=== PATIENT | female | born 1995 | race Caucasian/White ===

== ENCOUNTER 2016-06-29 17:11 | Inpatient (IN) | payer OTHER ==
[~2016-06-29] VITALS: Ht 175.3 cm; Wt 69.9 kg
[~2016-06-29 17:11] MED LIST: IBUPROFEN800 MG PO; IRON325 M1 PO; LEVAQUIN750 MG PO; MOTRIN800 MG PO; MULTIVITAMIN1 TA1 PO; PRENATAL1 TA2 PO; TRAMADOL50 MG PO
--- NOTE | 2016-06-29 17:14 | NUR ---
TRIAGE; PT TO ED C/O PAIN WHEN BREATHING. STATES SHE HAS A HX OF ASTHMA. HAS BEEN USING INHALER Q1 HOUR FOR THE PAST FEW DAYS. STATES PAIN HAS BEEN GETTING WORSE.
[2016-06-29] MEDS ORDERED: PROAIR HFA8.5 GM INH (17:19)
[2016-06-29] MEDS ORDERED: IPRATROPIUM BRO15 M1 NASB (17:20)
--- NOTE | 2016-06-29 17:20 | NUR ---
PT RECIEVED TO ROOM 7. AMBULATED TO ROOM. PT COMPLAINING OF DIFFICULTY BREATHING DUE TO PAIN WITH INSPIRATION. SHALLOW RAPID RESPIRATIONS. SATS 98% ON ROOM AIR. HEART RATE 153 PER PULSE OX. STEPHANIE ÁLVAREZ IN TO SEE PT.
[2016-06-29] MEDS ORDERED: IBUPROFEN800 M1 PO (17:23)
--- NOTE | 2016-06-29 17:26 | ED DYSPNEA/ASTHMA COMPLAINT ---
History of Present Illness General Chief Complaint: Dyspnea (COPD, CHF, Other) Stated Complaint: "IM HAVING A LOT OF PAIN BREATHING" Source: patient Exam Limitations: clinical condition Vital Signs & Intake/Output Vital Signs & Intake/Output Vital Signs Date Time Temp Pulse Resp B/P Pulse O2 O2 Flow FiO2 Ox Delivery Rate 06/29 1828 99.6 117 18 102/54 97 Room Air 06/29 1810 Room Air 06/29 1744 100.9 06/29 1713 100.9 153 20 116/78 94 Room Air Allergies Coded Allergies: No Known Allergies (06/29/16) Reconcile Medications Albuterol Sulfate (Proair Hfa) 90 MCG HFA.AER.AD 2 PUF INH Q4-6 PRN PRN RESPIRATORY (Reported) Ibuprofen 800 MG TABLET 1 TAB PO BID PAIN/INFLAMMATION (Reported) Ipratropium [place] 42 MCG (0.06 %) SPRAY 1-2 SPRAY NASB AD PRN NASAL CONGESTION (Reported) Triage Note: TRIAGE; PT TO ED C/O PAIN WHEN BREATHING. STATES SHE HAS A HX OF ASTHMA. HAS BEEN USING INHALER Q1 HOUR FOR THE PAST FEW DAYS. STATES PAIN HAS BEEN GETTING WORSE. Triage Nurses Notes Reviewed? yes Onset: Gradual Duration: week(s): (2), constant, getting worse Timing: recent history Severity: moderate, severe HPI: 20-year-old female comes into emergency room feeling sick for the past 2 weeks. Patient reports it started with sore throat and upper respiratory symptoms. Patient reports that she's been developing fever cough with mucus production severe body aches and fatigue. Progress with associated chest pain or shortness of breath over the past 2 days and symptoms of gotten progressively worse. Past History Travel History Traveled to [place] past 21 day No Medical History Any Pertinent Medical History? see below for history EENT: NONE (tonsillectomy) Cardiovascular: NONE ( induced cardiomyopat) Surgical History Surgical History: non-contributory Psychosocial History What is your primary language Kinyarwanda Family History Hx Contributory? No Review of Systems Review of Systems Constitutional: Reports: see HPI. EENTM: Reports: see HPI. Respiratory: Reports: see HPI. Cardiovascular: Reports: no symptoms. GI: Reports: no symptoms. Genitourinary: Reports: no symptoms. Musculoskeletal: Reports: no symptoms. Skin: Reports: no symptoms. Neurological/Psychological: Reports: no symptoms. Hematologic/Endocrine: Reports: no symptoms. Immunologic/Allergic: Reports: no symptoms. All Other Systems: Reviewed and Negative Physical Exam Physical Exam General Appearance: well developed/nourished, alert, awake, moderate distress Head: atraumatic, normal appearance Eyes: Bilateral: normal appearance, EOMI. Ears, Nose, Throat: normal pharynx, normal ENT inspection Neck: normal inspection Respiratory: normal breath sounds, no respiratory distress Cardiovascular: regular rate/rhythm, tachycardia Gastrointestinal: soft Extremities: normal inspection Neurologic/Psych: awake, alert, oriented x 3, normal gait, normal mood/affect Skin: intact, diaphoresis Core Measures ACS in differential dx? Yes Severe Sepsis Present: Yes BC x2: Yes Lactic Acid x2: Yes IV ABX Broad Spectrum: Yes NS/LR Started: Yes Septic Shock Present: No Progress Differential Diagnosis: asthma, AMI, bronchitis, costochondritis, CHF, COPD, musculoskeletal pain, pericarditis, pulmonary embolism, pneumonia, pneumothorax, rib fracture, unstable angina Plan of Care: Orders Procedure Date/time Status LACTIC ACID 06/30 2023 Active Telemetry/Shake Maker 06/29 172 Active URINE 06/29 172 Complete RAPID VIRAL INFLUENZA A 06/30 1723 Complete BLOOD CULTURE 06/29 172 Active TROPONIN LEVEL 06/29 172 Complete LACTIC ACID 06/29 172 Complete COMPREHENSIVE METABOLIC PANEL 06/29 172 Complete CBC WITHOUT DIFFERENTIAL 06/30 1723 Complete EKG 06/29 172 Active Current Medications Sig/Mel Start time Last Medication Dose Stop Time Status Admin Azithromycin 500 MG ONCE ONE 06/29 1844 AC (Zithromax) 06/30 1943 Sodium Chloride 250 ML (Normal Saline 0.9%) Sodium Chloride 1,000 ML BOLUS ONE 06/29 1844 AC (Normal Saline 0.9%) 06/30 1943 Laboratory Tests 06/29/16 1730: Anion Gap 16, Estimated GFR > 60, BUN/Creatinine Ratio 8.6, Glucose 145 H, Lactic Acid 3.3 H, Calcium 9.8, Total Bilirubin 1.2, AST 44 H, ALT 48, Alkaline Phosphatase 113, Troponin I < 0.01, Total Protein 8.0, Albumin 4.6, Globulin 3.4, Albumin/Globulin Ratio 1.4, CBC w Diff NO MAN DIFF REQ, RBC 4.27, MCV 82.8, MCH 26.4 L, RDW 15.1 H, MPV 9.6, Gran % 88.7 H, Lymphocytes % 6.4 L, Monocytes % 4.7, Eosinophils % 0.1, Basophils % 0.1, Absolute Granulocytes 12.4 H, Absolute Lymphocytes 0.9 L, Absolute Monocytes 0.7 H, Absolute Eosinophils 0, Absolute Basophils 0, PUBS MCHC 31.9 L, Urine Test NEGATIVE Microbiology 06/29 1850 BLOOD: Blood Culture - RECD 06/29 1746 NASOPHARYN: Influenza Virus A & B Rapid Smear - COMP 06/29 1730 BLOOD: Blood Culture - RECD Diagnostic Imaging: Viewed by Me: Radiology Read. Discussed w/RAD: Radiology Read. Initial ED EKG: normal intervals, normal p-waves, normal sinus rhythm, rate (133 ), nonspecific ST T wave chg Comments: EXAM TYPE: RAD - XRY-CHEST XRAY, PA AND LATERAL EXAMINATION: XR CHEST CLINICAL INFORMATION: Cough. Shortness of breath. COMPARISON: 09/09/2013 TECHNIQUE: 2 views of the chest were obtained. FINDINGS: There is a patchy infiltrate retrocardiac location left lower lobe. No parapneumonic effusion. Right lung clear. No other abnormality. Heart and mediastinum normal. No osseous abnormality. IMPRESSION: Left lower lobe pneumonia. No parapneumonic effusion. DICTATED BY: CHRISTEN CHAVEZ MD DATE/TIME DICTATED:06/29/161820 VENEREAL DISEASE CONTROL HEAD:ANTONIO Amor Departure Disposition: STILL A PATIENT Condition: Stable Clinical Impression Primary Impression: Sepsis Secondary Impressions: Pneumonia Referrals: PATIENT HAS NO PRIMARY CARE DR Departure Forms: Customer Survey General Discharge Information Admission Note Spoke With: LOIDA ROSENTHAL MD Documentation of Exam: Documentation of any treatments & extenuating circumstances including Concerns Regarding Discharge (functional status, medication knowledge or non-compliance, living conditions, etc.) that warrant an admission rather than observation: Patient meets criteria for sepsis. Patient will require IV hydration. IV antibiotics. Repeat lab work. I risk. Patient has not patient. Critical Care Note Critical Care Note Critical Care Time: 30-74 min (40) Critical Care Note Critical Care Note Critical Care Time: 30-74 min (40)
--- NOTE | 2016-06-29 17:40 | NUR ---
PT UP TO BATHROOM AND BACK TO PROVIDE URINE SPECIMEN. IV STARTED. LABS DRAWN. FIRST SET OF BLOOD CULTURES DRAWN.
[2016-06-29 17:49] LABS: ABSOLUTE BASOPHIL COUNT 0 /CUMM (0.0-0.2); ABSOLUTE EOSINOPHIL COUNT 0 /CUMM (0.0-0.7); ABSOLUTE GRANULOCYTE CT 12.4 /CUMM (1.4-6.5); ABSOLUTE LYMPH COUNT 0.9 /CUMM (1.2-3.4); ABSOLUTE MONOCYTE COUNT 0.7 /CUMM (0.10-0.60); BASOPHIL % 0.1 % (0.0-2.0); EOSINOPHIL % 0.1 % (0-5); GRANULOCYTE % 88.7 % (42.2-75.2); HEMATOCRIT 35.4 % (37-47); MEAN CORPUSCULAR HGB 26.4 PG (27.0-31.0); MEAN CORPUSCULAR HGB CONC 31.9 G/DL (33.0-37.0); MEAN CORPUSCULAR VOLUME 82.8 FL (81.0-99.0); MEAN PLATELET VOLUME 9.6 FL (7.4-10.4); PLATELET COUNT 260 /CUMM (130-400); RBC DISTRIBUTION WIDTH 15.1 % (11.5-14.5); RED BLOOD CELL CT 4.27 /CUMM (4.20-5.40)
--- NOTE | 2016-06-29 18:01 | NUR ---
PT GETTING IVF BOLUS, IV TYLENOL GIVEN. PT ON MONITOR AND HEART RATE IS 121. NEB TX GIVEN
--- NOTE | 2016-06-29 18:01 | NUR ---
PT WITH YOUNG CHILD IN HER CUSTODY. PT PHONED SOMEONE WHO IS REPORTEDLY COMING IN TO HOSPITAL TO CARE FOR HER CHILD WHILE SHE IS A PATIENT IN ED
--- NOTE | 2016-06-29 18:08 | NUR ---
FLU SWAB OBTAINED AND SENT TO LAB. PT TAKEN TO XRAY
--- NOTE | 2016-06-29 18:25 | RADIOLOGY REPORT ---
EXAMINATION: XR CHEST CLINICAL INFORMATION: Cough. Shortness of breath. COMPARISON: 09/09/2013 TECHNIQUE: 2 views of the chest were obtained. FINDINGS: There is a patchy infiltrate retrocardiac location left lower lobe. No parapneumonic effusion. Right lung clear. No other abnormality. Heart and mediastinum normal. No osseous abnormality. IMPRESSION: Left lower lobe pneumonia. No parapneumonic effusion.
--- NOTE | 2016-06-29 18:50 | NUR ---
CRITICAL TEST RESULTS [id number] JOANIE KEYES 20 F TESTS AND RESULTS: LACTIC ACID 3.3 Results received and read back by: ANDRES ONRMAN Results received date and time: 06/29/16 1850 The following provider was notified of the results, and read the results back: STEPHANIE FINLEY Notified date and time: 06/29/16 at 1840
--- NOTE | 2016-06-29 18:50 | NUR ---
2ND SET OF BLOOD CX'S OBTAINED WITH 21GA VAC AND SENT TO LAB
--- NOTE | 2016-06-29 18:50 | NUR ---
PT SEEN BY STEPHANIE FINLEY AND INFORMED SHE IS BEING ADMITTED FOR PNEUMONIA.
--- NOTE | 2016-06-29 18:57 | NUR ---
SECOND SET OF BLOOD CULTURES DRAWN. PT FEELING BETTER THEN UPON ADMISSTION. IS SMILING AND RELAXING. HEART RATE DOWN TO 118
--- NOTE | 2016-06-29 20:56 | NUR ---
HOUSE STAFF IN TO SEE PT
--- NOTE | 2016-06-29 21:27 | Admission Certification ---
Admission Certification Certification Statement - As attending physician, I certify that at the time of - admission, based on clinical presentation, severity of - symptoms, need for further diagnostic testing and - therapeutic interventions, and risk of adverse outcomes - without in-hospital treatment, in my clinical assessment, - this patient requires an acute hospital stay for a minimum - of two nights or longer. I have also considered psychsocial - factors such as support system, advanced age, financial - issues, cognitive issues, and failed out-patient treatments, - past re-admission history, safety of patient, and lack of - compliance as applicable. Specific rationale supporting this admission is: Sepsis 2/2 left lower lobe pneumonia.
--- NOTE | 2016-06-29 21:31 | NUR ---
REPEAT LACTIC ACID SENT TO LAB. IVF STARTED AT 125/HR. REPORT CALLED TO LOGAN ON
--- NOTE | 2016-06-29 21:43 | NUR ---
PT UP TO RESTROOM TO VOID
--- NOTE | 2016-06-29 21:54 | NUR ---
URINE SPECIMEN SENT TO LAB. PT MEDICATED WITH ROBITUSSIN AC FOR PAIN WITH COUGH
[2016-06-29 22:20] VITALS: BP 110/70
--- NOTE | 2016-06-29 22:38 | History & Physical ---
BAKARI [facility]ALAVIZ[facility] 2237: General Information and HPI MD Statement: I have seen and personally examined JOANIE KEYES and documented this H&P. The patient is a 20 year old F who presented with a patient stated chief complaint of [shortness of breath]. Source of Information: patient, family, old records Exam Limitations: no limitations History of Present Illness: This is a 20-year-old female past medical history significant for cardiomyopathy follows up with Dr. Fung, last EF in 2015 at 70, has history of asthma, and thyroid cyst, who presents with chief complaint of chest pain worsened with breathing and shortness of breath. Patient states that she had cough, fever, congestion, and sore throat that started about 2 weeks ago. She went to walk-in clinic about a week ago and was found to be strep negative, not given antibiotics. Over the past 2 weeks she said that she has been febrile off and on with a MAXIMUM TEMPERATURE 103. Her cough was initially with green sputum and eventually became clear and is now a dry cough. Patient does endorse chills, malaise, headache, shortness of breath that worsens with exertion, but denies any nausea, vomiting, diarrhea, constipation, myalgias or arthralgias. She does endorse some intermittent difficulty swallowing secondary to throat pain. 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 She states that she was taking Motrin for fever, and albuterol inhaler when necessary. Initially, she was using inhaler every 12 hours then every 6, but the last 2 days she been using it every 3-1.5 hours, with no benefit. Social history significant for a glass of wine a day, with some additional beers on the weekend. She smokes 1-2 cigarettes a year. Denies any IV drug use. Patient has history of tonsillectomy and adenoid removal. Note that this is third episode of pneumonia for this patient the last 365 days. Last episode towards the end of March and beginning of April, patient finished unknown course of antibiotic. 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 Ambulation: independent IADLs Independent: shopping, housework, finances, food prep, telephone, transportation , medication admin. Review of Systems Review of Systems Constitutional: Reports: chills, fever, malaise, weakness. Denies: diaphoresis. EENTM: Reports: throat pain. Denies: blurred vision, nasal pain. Cardiovascular: Reports: chest pain. Respiratory: Reports: cough, short of breath, sputum production, wheezing. Denies: hemoptysis, orthopnea. GI: Reports: no symptoms. Genitourinary: Reports: no symptoms. Musculoskeletal: Denies: muscle pain, muscle stiffness. Skin: Reports: no symptoms. Exam & Diagnostic Data Last 24 Hrs of Vital Signs/I&O Vital Signs Date Time Temp Pulse Resp B/P Pulse O2 O2 Flow FiO2 Ox Delivery Rate 06/30 2219 99 Room Air 06/30 2219 98.6 100 20 110/70 98 Room Air 06/294 99.1 113 18 109/54 100 Room Air 06/29 2021 98.0 114 18 122/58 100 Room Air 06/29 1829 99.6 117 18 102/54 97 Room Air 06/29 1810 Room Air 06/29 1744 100.9 06/29 1713 100.9 153 20 116/78 94 Room Air Physical Exam General Appearance Alert, Oriented X3, Cooperative, No Acute Distress Skin No Significant Lesion HEENT Atraumatic, PERRLA, EOMI, Mucous Membr. moist/pink, no oropharyngeal erythema appreciated. Neck Supple, No LAD Cardiovascular Normal S1, Normal S2, tachycardic Lungs patient had decreased breath sounds in the left side. She had slight egophony in the left lower base. No wheezes, rhonchi or crackles appreciated Abdomen Soft, No Tenderness Neurological Normal Speech, Cranial Nerves 3-12 NL Extremities No Edema, Normal Pulses, No Tenderness/Swelling Last 24 Hrs of Labs/Magnus: Laboratory Tests 06/29/16 2020: Lactic Acid 1.3 06/29/160: Anion Gap 16, Estimated GFR > 60, BUN/Creatinine Ratio 8.6, Glucose 145 H, Lactic Acid 3.3 H, Calcium 9.8, Total Bilirubin 1.2, AST 44 H, ALT 48, Alkaline Phosphatase 113, Creatine Kinase 1174 H, Troponin I < 0.01, Total Protein 8.0, Albumin 4.6, Globulin 3.4, Albumin/Globulin Ratio 1.4, TSH 0.526, Free T4 1.29, CBC w Diff NO MAN DIFF REQ, RBC 4.27, MCV 82.8, MCH 26.4 L, RDW 15.1 H, MPV 9.6, Gran % 88.7 H, Lymphocytes % 6.4 L, Monocytes % 4.7, Eosinophils % 0.1, Basophils % 0.1, Absolute Granulocytes 12.4 H, Absolute Lymphocytes 0.9 L, Absolute Monocytes 0.7 H, Absolute Eosinophils 0, Absolute Basophils 0, PUBS MCHC 31.9 L, HIV 1&2 Ab Western Blot NONREACTIVE, Urine Opiates Screen < 100.00, Methadone Screen < 40, Barbiturate Screen < 60, Ur Phencyclidine Scrn < 6.00, Amphetamines Screen < 100, U Benzodiazepines Scrn 358 H, Urine Cocaine Screen < 50, Urine Cannabis Screen < 5.00, Urine Test NEGATIVE Microbiology 06/30 2239 LOWER RESP: Respiratory Culture - ORD 06/30 2239 LOWER RESP: Gram Stain - ORD 06/29 2144 URINE ROUT: Legionella Antigen - COMP 06/29 2144 URINE ROUT: Streptococcus pneumoniae Antigen (M - COMP 06/29 1850 BLOOD: Blood Culture - RECD 06/29 174 NASOPHARYN: Influenza Virus A & B Rapid Smear - COMP 06/29 173 BLOOD: Blood Culture - RECD Assessment/Plan Assessment: This is a 20-year-old female past medical history significant for cardiomyopathy and now has normal EF, asthma, thyroid nodule, who comes in with chief complaint of pleuritic chest pain or shortness of breath. She describes persistent URI symptoms the past 2 weeks that are worsening in severity. Despite having a curb 65 score 0 and 0.7% with estimated 30 day mortality, patient meets criteria for sepsis secondary to pneumonia requiring hospitalization. As such, she will be admitted and further evaluated in the general medicine floor. ED workup shows: Vitals: 100.9 153, 20, 116/78, 94. CBC shows white count 14, hemoglobin 11.3, hematocrit 35.4, platelet 260. Negative test. BUN 6, creatinine 0.7. Lactic acid 3.3, subsequent value 1.3. AST 44. CK 1174. Tox positive for benzos. Negative HIV. PLAN 1. Severe Sepsis secondary to pneumonia: Given that patient came in with fever, tachycardia, white count, lactic acid with left lower lobe infiltrate she meets creiteria for severe sepsis. Interestingly, her CURB 65 is 0, her PSI is estimated at 0 (some values had to be estimated), qSOFA 0. She has hx of recurrent pna in the LLL. Unsure of etiology. This is third pna in the past one year. She does have history of asthma, however she states she rarely has to use her inhaler. She regularly exercises up to 5 days a week without assistance of inhaler. Flu swab negative in ED; regardless, patient is outside the window of Tamiflu. * Urine Legionella * Urine strep * Flu swab * Ceftriaxone and azithromycin for community acquired pneumonia * HIV * IV hydration * Monitor CBC/BEP * TRC * blood culture * sputum culture 2. Hx of thyroid nodule: Patient has had thyroid ultrasound. No further workup pursued. Chronic and stable. * Check TSH and T4 3. Elevated CK with no troponin: Pt stated that she recently did go to the gym despite feeling unwell. Pt denies any arthralgia or myalgias at this point. Given lack of troponin, CK likely of non-cardiac origin. Elevated CK can be present with aypical pna, influenza etc. Will con't monitor * Monitor CK * Hydrate aggressively (normal EF) * serial trop/ekg for ACS rule out FULL CODE CHEMICAL DVT PPX REGULAR DIET As Ranked By This Provider Problem List: 1. Sepsis 2. Pneumonia Core Measures/Miscellaneous Acute Coronary Syndrome ACS Diagnosis: No Cerebrovascular Accident CVA/TIA Diagnosis: No Congestive Heart Failure CHF Diagnosis: No Venous Thromboembolism VTE Risk Factors: Acute medical illness No [facility] VTE prophylaxis d/t: No contraindications No VTE Pharm Prophylaxis d/t: No contraindications VTE Diagnosis: No VTE Type: NONE VTE Confirmed by (Test): NONE Severe Sepsis Severe Sepsis Present: Yes BC x2: Yes Lactic Acid x2: Yes IV ABX Broad Spectrum: Yes NS/LR Started: Yes Septic Shock Septic Shock Present: No Miscellaneous Documentation Attending Case Discussed With: [facility] Primary Care Physician: KAILASH GALAVIZ,KAIA Najera Patient sees these Specialists UNKNOWN Level of Patient Care: General Medicine GIUSEPPE GALAVIZ,[facility] 06/29/16 2238: Resident Review Statement Resident Statement: examined this patient, discussed with equine intern, agreed with equine intern, discussed with family, reviewed EMR data (avail), discussed with nursing , discussed with case mgmt, reviewed images, amended to note Other Findings: Joanie is a 20-year-old woman with a medical history of cardiomyopathy(last echo 05/01/2014 left ventricular ejection fraction 70%), asthma, thyroid nodule. Who presents with 2 weeks of sore throat fever productive cough myalgia dyspnea. Previous treated for pneumonia at [facility]. Symptoms still persist. She also complains of some mild dysphagia. At present she appears ill but nontoxic, is awake alert oriented 3. She received empiric antibiotics in the ER is along with multiple fluid boluses. Vital signs notable for MAXIMUM TEMPERATURE of 100.9F. Temperature presently is 99.6 point degrees Fahrenheit. Blood pressure is 102/54, heart rate ranging from 153-117 bpm, 97% on room air. Labs notable for leukocytosis of 14,000. Hemoglobin 11 MCV 82, AST is 44, remainder LFTs is normal, first troponin negative. Chest x-ray demonstrates left lower lobe. Urine is negative. Urine tox pending. Suspect this patient had influenza-like illness, complicated by bacterial pneumonia. - Problems - Community Acquired Pneumonia Hx of TWI (Leads III, V3, V4) Mild Dysphagia Asthma Thyroid nodule - Plan - NS @ 125 cc/hr IVF bolus prn Await repeat lactic acid, blood/sputum cx, urine Ags legionella & s.pneumo Empiric abx Ceftriaxone 1g iv q24 Azithromycin 500mg iv q24 Supportive tx Mucinex Robutissin AC Tylenol prn for fever/pain Check HIV Ab, CK-MM, EBV serology If CK-MM, and patient is symptomatically worse, and/or hemodynamically unstable begin Vancomycin. Repeat EKG and troponin to ensure no change. Swallow evaluation in am Cont. inhalers, trc nebs prn Await TSH Outpatient evaluation by endocrine of thyroid nodule DVT ppx ALPS FULL code GALO GALAVIZ, [facility] 06/30/16 0053: Attending MD Review Statement Attending Statement Attending MD Statement: examined this patient, discuss w/resident/PA/COIL PLACER, agreed w/resident/PA/COIL PLACER, discussed with family Attending Assessment/Plan: 20 yo F with h/o asthma, cardiomyopathy, SEAN, chronic back pain 2/2 sciatica, recurrent pneumonia (twice in 2016 treated with oral abx), is here with 2-week h/o sore throat followed by cough productive of green phlegm, exertional dyspnea, fever 103, and pleuritic chest pain. C/o dysphagia+, poor appetite. She visited [facility] 1 week ago, strep swab was negative, she was advised to use her inhalers. She is a lead technical writer, hence sick contacts+. She reports taking Ibuprofen 800 mg BID for myalgias and chest discomfort for the past 2 weeks. Her exercise tolerance has decreased, but she still continued to exercise at the gym. She is sexually active, single partner and uses protection. Of note, she has undergone thyroid ultrasound (2014) which showed tiny left lobe cyst, no nodules. She has not followed up with Endocrine Dr. Brunson. Vitals: Tmax 100.9, tachycardic, BP 122/58, sats 99% RA. Labs: WBC 14, lactic acid 3.3, glucose 145, AST 44, CK 1174, trop neg, urine preg neg. Utox positive for benzos. CXR: LLL pneumonia, no parapneumonic effusion. Flu swab negative. EKG: Sinus tachycardia, nonspecific Twave changes (old). 1. Sepsis 2/2 left lower lobe pneumonia preceded by a flu-like illness. GM admit , TRC nebs, sputum culture, urine legionella and strep Ag, IV ceftriaxone and azithro, IV fluids, no need for steroids as patient not in asthma exacerbation. Repeat EKG and troponin. Trend lactic acid. Unclear as to why this young patient should get recurrent LLL pneumonias, ?underlying immunocompromised state. Will check HIV, monospot. Given c/o dysphagia, keep NPO and check swallow eval in AM. Consider CT chest and Pulm consult if symptoms do not improve over next 24 hours. 2. Mild rhabdomyolysis. Patient received 3 L NS bolus, continue maintenance @ 125/hr, recheck CK in AM. 3. Thyroid cyst, normal TFTs. Outpatient Endo follow up. 4. History of iron deficiency anemia. Patient needs to restart iron supplements. DVT ppx Alps. Full code.
--- NOTE | 2016-06-29 22:49 | NUR ---
PT ADMITTED FROM ER VIA STRETCHER. ALERT AND ORIENTED X 3. IND AMBULATION W/ A STEADY GAIT. T-98.6 P-100 R-20 B/P-110/70 POX-98 RA. LCTA. SKIN CDI. NO C/O PAIN. WILL CONTINUE TO MONITOR.
[2016-06-30 06:42] VITALS: BP 112/64
--- NOTE | 2016-06-30 07:58 | PN- Housestaff ---
HAYLEY GALAVIZ,SHAHRAM 06/30/16 0757: Subjective Follow-up For: Left lower lobe pneumonia Subjective: Patient seen and examined. She is seen sitting upright in bed resting comfortably. She appears to be in no acute distress. She reports persistent shortness of breath, only being able to take small shallow breaths and associated headache with chills since yesterday. Additionally she comments on a mild central chest discomfort without radiation. She expresses concern about this recurrent pneumonia and is asking about what her options are to prevent the recurrence. She denies any fever, palpitations, nausea, vomiting, diarrhea, constipation, urinary frequency/urgency/burning/pain. No overnight events reported. Review of Systems Constitutional: Reports: see HPI. Objective Last 24 Hrs of Vital Signs/I&O Vital Signs Date Time Temp Pulse Resp B/P Pulse O2 O2 Flow FiO2 Ox Delivery Rate 06/30 0642 99.9 90 20 112/64 97 Room Air 06/30 0000 99 Room Air 06/29 2220 99 Room Air 06/29 2220 98.6 100 20 110/70 98 Room Air 06/29 2144 99.1 113 18 109/54 100 Room Air 06/29 2022 98.0 114 18 122/58 100 Room Air 06/29 1829 99.6 117 18 102/54 97 Room Air 06/29 1810 Room Air 06/29 1744 100.9 06/29 1713 100.9 153 20 116/78 94 Room Air Intake & Output 06/30 1600 06/30 0800 06/30 0000 Intake Total 1800 3180 Output Total Balance 1800 3180 Intake, IV 1000 3060 Intake, Oral 800 120 Patient 69.853 kg Weight Physical Exam General Appearance: Alert, Oriented X3, Cooperative, No Acute Distress Other Physical Findings: General -well-developed, well-nourished young woman in no acute distress HEENT - NCAT, PERRL, EOMI, anicteric sclera Cardio - S1, S2 w/o murmurs/gallops/rubs Resp -decreased airflow in left lung [place] with scant crackles GI - soft, nontender, nondistended, bowel sounds present Neuro - Awake and alert, CN II - XII grossly intact Extremities -normal pulses, no cyanosis/clubbing/edema Current Medications: Current Medications Sig/Mel Start time Last Medication Dose Route Stop Time Status Admin Acetaminophen 650 MG Q6P PRN 03/19 2030 AC PO Acetaminophen 0 .STK-MED ONE 06/29 1741 DC IV Acetaminophen 1,000 MG ONCE ONE 06/29 1730 DC 06/29 IV 06/29 1731 1744 Acetaminophen/ 1 TAB Q6P PRN 06/29 2030 AC 06/30 Hydrocodone Bitart PO 0558 Albuterol Sulfate 3 ML Q4H PRN 06/29 2030 AC INH Albuterol Sulfate 3 ML ONCE ONE 06/29 1730 DC 06/29 INH 06/29 1731 1737 Azithromycin 500 MG DAILY@0 06/30 1930 AC Sodium Chloride 250 ML IV Azithromycin 500 MG ONCE ONE 06/29 1845 DC 06/29 Sodium Chloride 250 ML IV 06/29 1944 1946 Ceftriaxone Sodium 1,000 MG DAILY@06/30 1900 AC IV Ceftriaxone Sodium 0 .STK-MED ONE 06/29 1916 DC .ROUTE Ceftriaxone Sodium 1,000 MG ONCE ONE 06/29 1845 DC 06/29 IV 06/29 1846 1925 Diphenhydramine HCl 25 MG Q6P PRN 06/29 2030 AC IV Guaifenesin 600 MG Q12 06/29 2200 AC 06/29 PO 2338 Guaifenesin/Codeine 10 ML Q4P PRN 06/29 2030 AC 06/29 Phosphate PO 2154 Ipratropium [place] 2.5 ML ONCE ONE 06/29 1730 DC 06/29 INH 06/29 1731 1737 Morphine Sulfate 2 MG Q4P PRN 06/29 2030 AC IV Ondansetron HCl 4 MG Q6P PRN 06/29 2030 AC IV Patient Medication 1 UNIT ONE NR 06/29 2100 DC Teaching ED 06/29 2130 Patient Medication 1 UNIT ONE NR 06/29 2100 DC Teaching ED 06/29 2130 Polyethylene Glycol 17 GM AT BEDTIME 06/29 2200 AC PO Senna/Docusate Sodium 1 TAB AT BEDTIME 06/29 2200 AC PO Sodium Chloride 1,000 ML Q8H 06/29 2030 AC 06/30 IV 06/30 1229 0556 Sodium Chloride 1,000 ML BOLUS ONE 06/29 1845 DC 06/29 IV 06/29 1944 1936 Sodium Chloride 1,000 ML BOLUS ONE 06/29 1830 DC 06/29 IV 06/29 1929 1856 Sodium Chloride 1,000 ML BOLUS ONE 06/29 1730 DC 06/29 IV 06/29 1829 1744 Last 24 Hrs of Lab/Magnus Results Last 24 Hrs of Labs/Mics: Laboratory Tests 06/30/16 0700: Sodium Pending, Potassium Pending, Chloride Pending, Carbon Dioxide Pending, Anion Gap Pending, BUN Pending, Creatinine Pending, BUN/Creatinine Ratio Pending , CBC w Diff Pending, WBC Pending, RBC Pending, Hgb Pending, Hct Pending, MCV Pending, MCH Pending, RDW Pending, Plt Count Pending, MPV Pending, PUBS MCHC Pending 06/30/16 0109: Troponin I < 0.01, Infectious [place] Titer NEGATIVE 06/29/16 2020: Lactic Acid 1.3 06/29/16 1730: Anion Gap 16, Estimated GFR > 60, BUN/Creatinine Ratio 8.6, Glucose 145 H, Lactic Acid 3.3 H, Calcium 9.8, Total Bilirubin 1.2, AST 44 H, ALT 48, Alkaline Phosphatase 113, Creatine Kinase 1174 H, Troponin I < 0.01, Total Protein 8.0, Albumin 4.6, Globulin 3.4, Albumin/Globulin Ratio 1.4, TSH 0.526, Free T4 1.29, CBC w Diff NO MAN DIFF REQ, RBC 4.27, MCV 82.8, MCH 26.4 L, RDW 15.1 H, MPV 9.6, Gran % 88.7 H, Lymphocytes % 6.4 L, Monocytes % 4.7, Eosinophils % 0.1, Basophils % 0.1, Absolute Granulocytes 12.4 H, Absolute Lymphocytes 0.9 L, Absolute Monocytes 0.7 H, Absolute Eosinophils 0, Absolute Basophils 0, PUBS MCHC 31.9 L, HIV 1&2 Ab Western Blot NONREACTIVE, Urine Opiates Screen < 100.00, Methadone Screen < 40, Barbiturate Screen < 60, Ur Phencyclidine Scrn < 6.00, Amphetamines Screen < 100, U Benzodiazepines Scrn 358 H, Urine Cocaine Screen < 50, Urine Cannabis Screen < 5.00, Urine Test NEGATIVE Microbiology 06/30 2239 LOWER RESP: Respiratory Culture - COLB 06/30 2239 LOWER RESP: Gram Stain - COLB 06/29 2144 URINE ROUT: Legionella Antigen - COMP 06/29 2144 URINE ROUT: Streptococcus pneumoniae Antigen (M - COMP 06/29 1850 BLOOD: Blood Culture - RECD 06/29 1746 NASOPHARYN: Influenza Virus A & B Rapid Smear - COMP 06/29 1730 BLOOD: Blood Culture - RECD Assessment/Plan Assessment: Patient continues to report mild shortness of breath with associated chest pain and chills. She remains afebrile with improved leukocytosis and lactic acid. She is comfortable off of supplemental oxygen. She is to be continued on intravenous antibiotics and will be seen by a tin pot operator in the morning for further evaluation of her pulmonary disease. Severe sepsis secondary to left lower lobe pneumonia Patient reports multiple episodes of left lower lobe pneumonia in recent years. Patient was reportedly recently seen in [facility] for similar symptoms 1 week ago for which she was reportedly diagnosed with a "cold" and discharged home with a nasal spray. Chest x-ray demonstrates a left lower lobe pneumonia. Legionella/strep/influenza negative. HIV/infectious mono titer negative. -General medicine -TRC with albuterol/ipratropium when necessary -Supplement oxygen, goal >92%, taper as tolerated -Ceftriaxone 1 g IV daily -Azithromycin 500 mg IV daily -Guaifenesin 600 mg by mouth every 12 hours -Zofran 4 mg IV every 6 hours as needed for nausea -Follow-up cultures and sensitivities History of thyroid nodule Patient of Dr. viramontes. Reportedly was found to have a thyroid nodule via ultrasound.- -TSH/T4 0.526/1.29 History of cardiomyopathy Patient of Dr. Fung and Anju Vazquez MD (OBGYN). Echocardiogram dated demonstrated an ejection fraction of 70% without any obvious wall motion abnormalities. History of headaches Seen by an unknown neurology group by a physician contract assistant by the name of Henny for evaluation of her longstanding headaches. Pain plan-acetaminophen/Vicodin/morphine Bowel regimen-MiraLAX/Senokot Diet-regular diet DVT prophylaxis-Lovenox CODE STATUS-full code Problem List: 1. Sepsis 2. Pneumonia Pain Ratin Pain Location: None Pain Goal: Pain 4 or less Pain Plan: As noted in plan Tomorrow's Labs & Rationales: CBC - pneumonia BEP - hyponatremia SHARRI العراقي MD 06/30/162126: Attending MD Review Statement Attending Statement Attending MD Statement: examined this patient, discuss w/resident/PA/FEEDER CATCHER TOBACCO, agreed w/resident/PA/FEEDER CATCHER TOBACCO, reviewed EMR data (avail), discussed with nursing, reviewed images, amended to note Attending Assessment/Plan: The patient was seen and discussed with house staff. Agree with the plan of care as noted. Pulmonary to see tomorrow.
[2016-06-30 08:16] LABS: ABSOLUTE BASOPHIL COUNT 0 /CUMM (0.0-0.2); ABSOLUTE EOSINOPHIL COUNT 0.2 /CUMM (0.0-0.7); BASOPHIL % 0.3 % (0.0-2.0)
[2016-06-30 09:21] LABS: ABSOLUTE LYMPH COUNT 1.2 /CUMM (1.2-3.4); EOSINOPHIL % 1.6 % (0-5); GRANULOCYTE % 76.9 % (42.2-75.2); MEAN CORPUSCULAR HGB 26.4 PG (27.0-31.0); MEAN CORPUSCULAR HGB CONC 31.7 G/DL (33.0-37.0); MEAN PLATELET VOLUME 10.4 FL (7.4-10.4); PLATELET COUNT 199 /CUMM (130-400); RBC DISTRIBUTION WIDTH 14.5 % (11.5-14.5); RED BLOOD CELL CT 3.33 /CUMM (4.20-5.40); WHITE BLOOD CELL COUNT 10.5 /CUMM (4.8-10.8)
[2016-06-30 09:33] LABS: HEMATOCRIT 27.6 % (37-47)
[2016-06-30 14:40] VITALS: BP 100/58
[2016-06-30 22:29] VITALS: BP 110/60
--- NOTE | 2016-07-01 | NUR ---
AT 0000 THE PATIENT TEMP WAS 102.3 ORALLY. PATIENT WAS COMPLAINING OF CHILLS AND HEADACHE. ALERT AND ORIENTED. NO DISTRESS WAS NOTED. TYLENOL 650MG PO WAS GIVEN. MD CARLOS Calderón WAS NOTIFIED. WILL CONTINUE TO MONITOR.
--- NOTE | 2016-07-01 01:57 | Event Note ---
Event Note Event Note: Pt febrile at 102.9, rectally measured. Did bcx x2, administered tylenol. Temp decreased to 100. Did not change antibiotic regimen as its only been 24 hrs of IV antibiotic regimen. But if pt continues to spike fever will add Vanco for MRSA coverage.
[2016-07-01 06:00] VITALS: BP 102/60
--- NOTE | 2016-07-01 07:34 | PN- Housestaff ---
HAYLEY GALAVIZ,SHAHRAM 07/01/16 0734: Subjective Follow-up For: Left lower lobe pneumonia Subjective: Patient seen and examined. She is seen sitting upright in her bed resting comfortably. She appears to be in no acute distress. She reports that overnight she had some difficulty breathing with associated chills and that "they took away my blankets". She states that she has been persistently nauseated overnight with a left-sided nonradiating chest discomfort that is worsened with a deep breath. Otherwise she denies any headache, subjective fever, palpitations, cough, vomiting, diarrhea, constipation, urinary frequency/urgency/burning/pain. Patient was reportedly febrile to 102.9 overnight for which she was given acetaminophen and blood cultures were drawn. Review of Systems Constitutional: Reports: see HPI. Objective Last 24 Hrs of Vital Signs/I&O Vital Signs Date Time Temp Pulse Resp B/P Pulse O2 O2 Flow FiO2 Ox Delivery Rate 07/01 0914 97 Room Air 07/01 0800 Room Air 07/01 0600 99.2 95 18 102/60 96 Room Air 07/01 0105 98.4 07/01 0015 102.3 07/01 0009 100.1 07/01 0009 100.1 07/01 0000 Room Air 06/30 2254 102.9 06/30 2229 101.7 112 20 110/60 94 Room Air 06/30 1900 98 Room Air 06/30 1600 Room Air 06/30 1440 97.4 100 18 100/58 96 Room Air 06/30 1231 Room Air 06/30 1230 95 Room Air Intake & Output 07/01 1600 07/01 0800 07/01 0000 Intake Total 300 300 Output Total Balance 300 300 Intake, Oral 300 300 Physical Exam General Appearance: Alert, Oriented X3, Cooperative, No Acute Distress Other Physical Findings: General -well-developed, well-nourished young woman in no acute distress HEENT - NCAT, PERRL, EOMI, anicteric sclera Cardio - S1, S2 w/o murmurs/gallops/rubs Resp -decreased airflow in left lung [place] with scant crackles GI - soft, nontender, nondistended, bowel sounds present Neuro - Awake and alert, CN II - XII grossly intact Extremities -normal pulses, no cyanosis/clubbing/edema Current Medications: Current Medications Sig/Mel Start time Last Medication Dose Route Stop Time Status Admin Acetaminophen 650 MG .STK-MED ONE 06/30 2249 DC PO 06/30 2250 Acetaminophen 650 MG .STK-MED ONE 06/30 1239 DC PO 06/30 1240 Acetaminophen 650 MG Q6P PRN 06/29 2029 AC 06/30 PO 2254 Acetaminophen/ 1 TAB Q6P PRN 06/29 2029 AC 07/01 Hydrocodone Bitart PO 0820 Albuterol Sulfate 3 ML BID 06/30 2199 AC 07/01 INH 0914 Albuterol Sulfate 3 ML Q4H PRN 06/29 2029 AC INH Azithromycin 500 MG DAILY@19306/30 193 DC 06/30 Sodium Chloride 250 ML IV 1834 Ceftazidime 1,000 MG IQ8 07/01 0800 AC 07/01 IV 0912 Ceftriaxone Sodium 1,000 MG DAILY@19006/30 190 DC 06/30 IV 1826 Diphenhydramine HCl 25 MG Q6P PRN 06/29 2029 AC IV Guaifenesin 600 MG Q12 06/29 2199 AC 07/01 PO 0912 Guaifenesin/Codeine 10 ML Q4P PRN 06/29 2029 AC 06/30 Phosphate PO 1826 Morphine Sulfate 2 MG Q4P PRN 06/29 2029 AC 06/30 IV 1826 Ondansetron HCl 4 MG Q6P PRN 06/29 2029 AC IV Patient Medication 1 ED .STK-MED ONE 06/30 1334 DC Teaching ED 06/30 1335 Polyethylene Glycol 17 GM AT BEDTIME 06/29 2199 DC 06/30 PO 2122 Senna/Docusate Sodium 1 TAB AT BEDTIME 06/29 2199 AC 06/30 PO 2122 Sodium Chloride 1,000 ML Q10H 07/01 0845 AC 07/01 IV 1020 Sodium Chloride 1,000 ML Q8H 06/29 2029 DC 06/30 IV 06/30 1229 0556 Vancomycin HCl 1,000 MG Q12H 07/01 1000 AC Dextrose/Water 250 ML IV Last 24 Hrs of Lab/Magnus Results Last 24 Hrs of Labs/Mics: Laboratory Tests 07/01/16 0745: Troponin I Cancelled 07/01/16 0638: Anion Gap 8, Estimated GFR > 60, BUN/Creatinine Ratio 8.0, CBC w Diff NO MAN DIFF REQ, RBC 3.60 L, MCV 83.3, MCH 26.6 L, RDW 14.8 H, MPV 9.9, Gran % 62.3, Lymphocytes % 22.1, Monocytes % 10.0 H, Eosinophils % 5.1 H, Basophils % 0.5, Absolute Granulocytes 4.8, Absolute Lymphocytes 1.7, Absolute Monocytes 0.8 H, Absolute Eosinophils 0.4, Absolute Basophils 0, PUBS MCHC 31.9 L Microbiology 07/01 0842 LOWER RESP: Respiratory Culture - COLB 07/01 0842 LOWER RESP: Gram Stain - COLB 07/01 0050 BLOOD: Blood Culture - RECD 07/01 0035 BLOOD: Blood Culture - RECD 06/30 1240 LOWER RESP: Respiratory Culture - RES 06/30 1240 LOWER RESP: Gram Stain - RES Assessment/Plan Assessment: Patient was febrile overnight with associated chills and nausea. Blood cultures were taken and patient was given acetaminophen. Antibiotics were changed from azithromycin/ceftriaxone to vancomycin/ceftazidime today. Patient has no persistent leukocytosis, however now has eosinophilia for unclear reasons. Pulmonology data consultant recommended following up CT chest. CT chest with intravenous contrast obtained demonstrated findings consistent with left lower lobe pneumonia. Infectious disease consult placed, recommendations pending. Severe sepsis secondary to left lower lobe pneumonia Patient reports multiple episodes of left lower lobe pneumonia in recent years. Patient was reportedly recently seen in [facility] for similar symptoms 1 week ago for which she was reportedly diagnosed with a "cold" and discharged home with a nasal spray. Chest x-ray demonstrates a left lower lobe pneumonia. Legionella/strep/influenza negative. HIV/infectious mono titer negative. CT chest with intravenous contrast obtained demonstrated findings consistent with left lower lobe pneumonia. -General medicine -TRC with albuterol/ipratropium when necessary -Supplement oxygen, goal >92%, taper as tolerated -Ceftriaxone / Azithromycin discontinued -Vancomycin 1 g IV every 12 hours -Ceftazidime 1 g IV every 8 hours -Guaifenesin 600 mg by mouth every 12 hours -Zofran 4 mg IV every 6 hours as needed for nausea -Infectious disease consult -Pulmonology consult -Follow-up cultures and sensitivities History of thyroid nodule Patient of Dr. viramontes. Reportedly was found to have a thyroid nodule via ultrasound.- -TSH/T4 0.526/1.29 History of cardiomyopathy Patient of Dr. Fung and Anju Vazquez MD (OBGYN). Echocardiogram dated demonstrated an ejection fraction of 70% without any obvious wall motion abnormalities. History of headaches Seen by an unknown neurology group by a physician training assistant by the name of Henny for evaluation of her longstanding headaches. Pain plan-acetaminophen/Vicodin/morphine Bowel regimen-MiraLAX/Senokot Diet-regular diet DVT prophylaxis-Lovenox CODE STATUS-full code Problem List: 1. Pneumonia Pain Ratin Pain Location: Left chest wall Pain Goal: Remain pain free Pain Plan: As noted in plan Tomorrow's Labs & Rationales: Complete blood count-pneumonia [id number] SHARRI العراقي MD 07/01/160: Attending MD Review Statement Attending Statement Attending MD Statement: examined this patient, discuss w/resident/PA/COMMODITY INDUSTRY ANALYST, agreed w/resident/PA/COMMODITY INDUSTRY ANALYST, reviewed EMR data (avail), discussed with nursing, reviewed images, amended to note Attending Assessment/Plan: The patient was seen and discussed with house staff. Agree with the plan of care as outlined. Appreciate pulmonary and ID input.
[2016-07-01 07:48] LABS: ABSOLUTE BASOPHIL COUNT 0 /CUMM (0.0-0.2); ABSOLUTE EOSINOPHIL COUNT 0.4 /CUMM (0.0-0.7); ABSOLUTE GRANULOCYTE CT 4.8 /CUMM (1.4-6.5); ABSOLUTE LYMPH COUNT 1.7 /CUMM (1.2-3.4); ABSOLUTE MONOCYTE COUNT 0.8 /CUMM (0.10-0.60); BASOPHIL % 0.5 % (0.0-2.0); EOSINOPHIL % 5.1 % (0-5); GRANULOCYTE % 62.3 % (42.2-75.2); MEAN CORPUSCULAR HGB 26.6 PG (27.0-31.0); MEAN CORPUSCULAR HGB CONC 31.9 G/DL (33.0-37.0); MEAN CORPUSCULAR VOLUME 83.3 FL (81.0-99.0); MEAN PLATELET VOLUME 9.9 FL (7.4-10.4); PLATELET COUNT 220 /CUMM (130-400); RBC DISTRIBUTION WIDTH 14.8 % (11.5-14.5); WHITE BLOOD CELL COUNT 7.7 /CUMM (4.8-10.8)
--- NOTE | 2016-07-01 07:48 | NUR ---
ACUTE ASSESSMENT (CONT) BLOOD CULTURE WAS OREDERD
--- NOTE | 2016-07-01 07:48 | NUR ---
AT 0100 PATIENT WAS RE-ASSESSED BY THE PRODUCTION TESTER. THE TEMP HAS IMPROVED TO 98.4. THE PATIENT DENIES ANY DISCOMFORT AT THIS TIME.
--- NOTE | 2016-07-01 09:15 | Cons- Pulmonary ---
General Information and HPI Consulting Request Date of Consult: 07/01/16 Requested By: Dr. Orta Reason for Consult: Pneumonia Source of Information: patient, old records Exam Limitations: no limitations History of Present Illness: The patient is a 20-year-old female, non-smoker, with a past medical history significant for cardiomyopathy, followed by Dr. Fung, history of asthma and history of thyroid cyst. The patient was admitted on 06/29/2016 with complaints of chest pain associated with increased shortness of breath. She also had a cough, fever and chest congestion. She developed a sore throat that started 2 weeks prior to admission. She was seen at a walk-in clinic one week prior to admission and was strep negative. No medications were given. Over the past 2 weeks, the patient has been febrile with a MAXIMUM TEMPERATURE of 103. She has had to use her albuterol inhaler with increasing frequency however she did not get significant benefit from it. The patient was evaluated in the ED and underwent a chest x-ray that showed a patchy retrocardiac infiltrate in the left lower lobe. She was admitted to the general medical floor and started on ceftriaxone and azithromycin. She has been worked up noting her blood cultures and sputum culture are negative to date. She did have a few gram-positive cocci , gram-negative rods and gram-positive rods in her sputum. Quick flu, urine for Legionella and strep pneumococcus were all negative. Monospot was negative as well. She has not required supplemental oxygen. Overnight, the patient did spike a fever of 102.9. She was subsequently changed to vancomycin and ceftazidime by the primary team. Since white blood cell count has come down from 14 to 7.7. She reports having ongoing chest discomfort and shortness of breath, however she is feeling better overall. Allergies/Medications Allergies: Coded Allergies: No Known Allergies (06/29/16) Home Med List: Albuterol Sulfate (Proair Hfa) 90 MCG HFA.AER.AD 2 PUF INH Q4-6 PRN PRN RESPIRATORY (Reported) Ibuprofen 800 MG TABLET 1 TAB PO BID PAIN/INFLAMMATION (Reported) Ipratropium [place] 42 MCG (0.06 %) SPRAY 1-2 SPRAY NASB AD PRN NASAL CONGESTION (Reported) Current Medications: Current Medications Sig/Mel Start time Last Medication Dose Route Stop Time Status Admin Acetaminophen 650 MG .STK-MED ONE 06/30 2249 DC PO 06/30 2250 Acetaminophen 650 MG .STK-MED ONE 06/30 1239 DC PO 06/30 1240 Acetaminophen 650 MG Q6P PRN 06/29 2029 AC 06/30 PO 2254 Acetaminophen/ 1 TAB Q6P PRN 06/29 2029 AC 07/01 Hydrocodone Bitart PO 0820 Albuterol Sulfate 3 ML BID 06/30 220 AC 07/01 INH 0914 Albuterol Sulfate 3 ML Q4H PRN 06/29 2029 AC INH Azithromycin 500 MG DAILY@19306/30 193 DC 06/30 Sodium Chloride 250 ML IV 1834 Ceftazidime 1,000 MG IQ8 07/01 0800 AC 07/01 IV 0912 Ceftriaxone Sodium 1,000 MG DAILY@1900 06/30 190 DC 06/30 IV 1826 Diphenhydramine HCl 25 MG Q6P PRN 06/29 2029 AC IV Guaifenesin 600 MG Q12 06/29 220 AC 07/01 PO 0912 Guaifenesin/Codeine 10 ML Q4P PRN 06/29 2029 AC 06/30 Phosphate PO 1826 Morphine Sulfate 2 MG Q4P PRN 06/29 2029 AC 06/30 IV 1826 Ondansetron HCl 4 MG Q6P PRN 06/29 2029 AC IV Patient Medication 1 ED .STK-MED ONE 06/30 1334 GA Teaching ED 06/30 1335 Polyethylene Glycol 17 GM AT BEDTIME 06/29 2199 GA 06/30 PO 2122 Senna/Docusate Sodium 1 TAB AT BEDTIME 06/29 2199 AC 06/30 PO 2122 Sodium Chloride 1,000 ML Q10H 07/01 0845 AC IV Sodium Chloride 1,000 ML Q8H 06/29 2029 DC 06/30 IV 06/30 1229 0556 Vancomycin HCl 1,000 MG Q12H 07/01 1000 AC Dextrose/Water 250 ML IV Review of Systems Review of Systems All Other Systems: Reviewed and Negative Past History Travel History Traveled to [place] past 21 day No Medical History EENT: NONE (tonsillectomy) Cardiovascular: INDUCED CARDIOMYOPATHY ( induced cardiomyopat) Respiratory: asthma Endocrine: thyroid cyst Surgical History Surgical History: tonsillectomy, adenoids removal Psychosocial History Smoking Status: Never Smoked ETOH Use: occasional use Illicit Drug Use: denies illicit drug use Functional Ability ADLs Independent: dressing, eating, toileting, bathing. Ambulation: independent IADLs Independent: shopping, housework, finances, food prep, telephone, transportation , medication admin. Exam & Diagnostic Data Last 24 Hrs of Vital Signs/I&O Vital Signs Date Time Temp Pulse Resp B/P Pulse O2 O2 Flow FiO2 Ox Delivery Rate 07/01 0914 97 Room Air 07/01 0800 Room Air 07/01 0600 99.2 95 18 102/60 96 Room Air 07/01 0105 98.4 07/01 0015 102.3 07/01 0009 100.1 07/01 0009 100.1 07/01 0000 Room Air 06/30 2254 102.9 06/30 2229 101.7 112 20 110/60 94 Room Air 06/30 1900 98 Room Air 06/30 1600 Room Air 06/30 1440 97.4 100 18 100/58 96 Room Air 06/30 1231 Room Air 06/30 1230 95 Room Air Intake & Output 07/01 1600 07/01 0800 07/01 0000 Intake Total 300 300 Output Total Balance 300 300 Intake, Oral 300 300 Physical Exam General Appearance: well developed/nourished, no apparent distress, alert, comfortable Head: atraumatic, normal appearance Neck: supple Respiratory: no respiratory distress, lungs clear Cardiovascular: regular rate/rhythm Gastrointestinal: normal bowel sounds, soft, non-tender Extremities: no edema Skin: intact, normal color, warm/dry Last 48 Hrs of Labs/Magnus: Laboratory Tests 07/01/16 0745: Troponin I Cancelled 07/01/16 0638: Anion Gap 8, Estimated GFR > 60, BUN/Creatinine Ratio 8.0, CBC w Diff NO MAN DIFF REQ, RBC 3.60 L, MCV 83.3, MCH 26.6 L, RDW 14.8 H, MPV 9.9, Gran % 62.3, Lymphocytes % 22.1, Monocytes % 10.0 H, Eosinophils % 5.1 H, Basophils % 0.5, Absolute Granulocytes 4.8, Absolute Lymphocytes 1.7, Absolute Monocytes 0.8 H, Absolute Eosinophils 0.4, Absolute Basophils 0, PUBS MCHC 31.9 L 06/30/16 0700: Anion Gap 8, Estimated GFR > 60, BUN/Creatinine Ratio 5.0 L, Creatine Kinase 1319 H, CBC w Diff NO MAN DIFF REQ, RBC 3.33 L, MCV 83.0, MCH 26.4 L, RDW 14.5, MPV 10.4, Gran % 76.9 H, Lymphocytes % 11.9 L, Monocytes % 9.3, Eosinophils % 1.6, Basophils % 0.3, Absolute Granulocytes 8.0 H, Absolute Lymphocytes 1.2, Absolute Monocytes 1.0 H, Absolute Eosinophils 0.2, Absolute Basophils 0, PUBS MCHC 31.7 L 06/30/16 010: Troponin I < 0.01, Infectious [place] Titer NEGATIVE 06/29/162024: Urine Color YEL, Urine Clarity CLEAR, Urine pH 6.5, Ur Specific [place] 1.010, Urine Protein NEG, Urine Ketones 15 H, Urine Nitrite NEG, Urine Bilirubin NEG, Urine Urobilinogen 0.2, Ur Leukocyte Esterase NEG, Ur Microscopic EXAM NOT REQUIRED, Urine Hemoglobin NEG, Urine Glucose NEG 06/29/162019: Lactic Acid 1.3 06/29/16 1746: Virus Culture Pending 06/29/16 1730: Anion Gap 16, Estimated GFR > 60, BUN/Creatinine Ratio 8.6, Glucose 145 H, Lactic Acid 3.3 H, Calcium 9.8, Total Bilirubin 1.2, AST 44 H, ALT 48, Alkaline Phosphatase 113, Creatine Kinase 1174 H, Troponin I < 0.01, Total Protein 8.0, Albumin 4.6, Globulin 3.4, Albumin/Globulin Ratio 1.4, TSH 0.526, Free T4 1.29, CBC w Diff NO MAN DIFF REQ, RBC 4.27, MCV 82.8, MCH 26.4 L, RDW 15.1 H, MPV 9.6, Gran % 88.7 H, Lymphocytes % 6.4 L, Monocytes % 4.7, Eosinophils % 0.1, Basophils % 0.1, Absolute Granulocytes 12.4 H, Absolute Lymphocytes 0.9 L, Absolute Monocytes 0.7 H, Absolute Eosinophils 0, Absolute Basophils 0, PUBS MCHC 31.9 L, HIV 1&2 Ab Western Blot NONREACTIVE, Urine Opiates Screen < 100.00, Methadone Screen < 40, Barbiturate Screen < 60, Ur Phencyclidine Scrn < 6.00, Amphetamines Screen < 100, U Benzodiazepines Scrn 358 H, Urine Cocaine Screen < 50, Urine Cannabis Screen < 5.00, Urine Test NEGATIVE Microbiology 06/29 2144 URINE ROUT: Legionella Antigen - COMP 06/29 2144 URINE ROUT: Streptococcus pneumoniae Antigen (M - COMP 06/29 1746 NASOPHARYN: Influenza Virus A & B Rapid Smear - COMP Assessment/Plan Impression/Plan: 1. Subtle left lower lobe/retrocardiac infiltrate suggestive of community- acquired pneumonia. The patient has had repeat spiking temperatures and was subsequently changed to vancomycin and ceftazidime. The patient also reports she has had recurrent pneumonia, and this is her third episode over the past year. The previous 2 episodes did not require hospitalization, but she was treated with oral antibiotics. 2. History of asthma. 3. Thyroid cyst. 4. History of cardiomyopathy. Recommendations: * Agree with checking a CTA of the chest (of note, test is negative). * Continue nebs/TRC/Proventil. * Continue guaifenesin. * Please request respiratory to check a bedside spirometry. * Consider an ID consult. Despite the fact that the patient had a spiking fever , her white blood cell count and symptoms were improving on ceftriaxone and azithromycin. * DVT prophylaxis at all times. * Will make further recommendations pending the CT scan results. * Thank you for this consult, I will follow along with you and provide further recommendations as necessary. Please call with any questions. Consult Acknowledgment - Thank you for your consult request.
[2016-07-01 14:27] VITALS: BP 118/86
--- NOTE | 2016-07-01 15:54 | CT SCAN REPORT ---
EXAMINATION: CT CHEST WITH CONTRAST CLINICAL INFORMATION: 20-year-old female with shortness of breath, cough, chest pain. Abnormal chest x-ray. COMPARISON: Chest x-ray done on 06/29/2016. TECHNIQUE: Multidetector volumetric CT imaging of the chest was obtained after the administration of 98 mL of Optiray 320 intravenous contrast without immediate adverse reactions. Axial MIP volume rendering provided. Sagittal and coronal reformatted images were obtained. DLP: 173.5 mGy-cm FINDINGS: AIRPORT OPERATIONS SPECIALIST: Dense retrocardiac airspace disease is present, similar to prior chest radiograph, consistent with left lower lobar pneumonia. LUNGS: Dense consolidation at left lower lobe of the lung is noted, concordant with prior chest radiograph, consistent with left lower lobar pneumonia. Significantly smaller focal airspace disease is also noted at right lung base, consistent with right lower lobar pneumonia, atelectasis or combination thereof. The remainder of the lung [place] bilaterally otherwise appears unremarkable. The tracheobronchial tree appears patent. MEDIASTINUM: Small left perihilar prominent lymph nodes are noted. There is no pathologically enlarged mediastinal, hilar lymphadenopathy present. PLEURA: Trace amount of bilateral pleural effusion is noted, non drainable. AXILLA: No lymphadenopathy. UPPER ABDOMEN: Unremarkable. OSSEOUS STRUCTURES: Unremarkable. IMPRESSION: 1. Features consistent with left lower lobar pneumonia and right lower lobar atelectasis, pneumonia or combination thereof. 2. Trace non drainable bilateral pleural effusions.
--- NOTE | 2016-07-01 17:03 | Cons- Infect Disease ---
General Information and HPI Consulting Request Date of Consult: 07/01/16 Requested By: SHARRI العراقي MD Reason for Consult: Left lower lobe pneumonia/persistent fever Source of Information: patient History of Present Illness: This is a 20-year-old woman with a history of asthma and cardiomyopathy, treated for outpatient pneumonia twice in the past year, most recently 2-1/2 months prior to admission, admitted on June 29 with a two-week history of a cough, intermittently productive of yellow or green sputum, congestion, shortness of breath, chest discomfort, body aches and intermittent fevers and chills. On admission she was febrile to 100.9. Laboratory data revealed a white blood cell count of 14,000, BUN/creatinine 6 and 0.7, lactic acid 3.3, AST/ALT 44 and 48, CPK 1174. Urinalysis negative. Chest x-ray revealed a left lower lobe pneumonia. She was begun on Ceftriaxone and Azithromycin. On June 30 she spiked a fever to 102.9, but her white blood cell count decreased to 10.5, and it has continued to decrease today. This morning she was changed to Vancomycin and Ceftazidime in response to the fever last night. At present she feels improved with decreased cough and chest discomfort and she has no shortness of breath. 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 She has had no recent travel, has no pets and has had no known exposure to TB. Allergies/Medications Allergies: Coded Allergies: No Known Allergies (06/29/16) Home Med List: Albuterol Sulfate (Proair Hfa) 90 MCG HFA.AER.AD 2 PUF INH Q4-6 PRN PRN RESPIRATORY (Reported) Ibuprofen 800 MG TABLET 1 TAB PO BID PAIN/INFLAMMATION (Reported) Ipratropium [place] 42 MCG (0.06 %) SPRAY 1-2 SPRAY NASB AD PRN NASAL CONGESTION (Reported) Past History Travel History Traveled to [place] past 21 day No Medical History Cardiovascular: INDUCED CARDIOMYOPATHY ( induced cardiomyopat) Respiratory: asthma Endocrine: thyroid cyst History of MRSA: No History of VRE: No History of CDIFF: No Isolation History: Standard Influenza Vaccine: 01/12/16 Surgical History Surgical History: tonsillectomy, adenoids removal Psychosocial History Smoking Status: Never Smoked ETOH Use: occasional use Illicit Drug Use: denies illicit drug use Functional Ability ADLs Independent: dressing, eating, toileting, bathing. Ambulation: independent IADLs Independent: shopping, housework, finances, food prep, telephone, transportation , medication admin. Review of Systems Review of Systems All Other Systems: Reviewed and Negative Exam & Diagnostic Data Last 24 Hrs of Vital Signs/I&O Vital Signs Date Time Temp Pulse Resp B/P Pulse O2 O2 Flow FiO2 Ox Delivery Rate 07/01 1600 Room Air 07/01 1427 98.3 90 20 118/86 98 Room Air 07/01 1110 98.1 07/01 0914 97 Room Air 07/01 0800 Room Air 07/01 0600 99.2 95 18 102/60 96 Room Air 07/01 0105 98.4 07/01 0015 102.3 07/01 0009 100.1 07/01 0009 100.1 07/01 0000 Room Air 06/30 2254 102.9 06/30 2229 101.7 112 20 110/60 94 Room Air 06/30 1900 98 Room Air Intake & Output 07/01 1600 07/01 0800 07/01 0000 Intake Total 1100 300 300 Output Total Balance 1100 300 300 Intake, IV 500 Intake, Oral 600 300 300 Number 1 Bowel Movements Physical Exam Other Physical Findings: She is awake and alert in no acute distress. MAXIMUM TEMPERATURE 102.9. Skin reveals no rash. HEENT exam is negative. Neck is supple with no adenopathy. Lungs decreased breath sounds at the left base. Heart regular rhythm with no murmur. Abdomen is soft, nontender with positive bowel sounds. Back no CVA tenderness. Extremities no cyanosis, clubbing or edema. Neuro is without focality. Last 24 Hours of Lab Results: Laboratory Tests 07/01 07/01 0745 0638 Chemistry Sodium (137 - 145 mmol/L) 135 L Potassium (3.5 - 5.1 mmol/L) 4.1 Chloride (98 - 107 mmol/L) 102 Carbon Dioxide (22 - 30 mmol/L) 25 Anion Gap (5 - 16) 8 BUN (7 - 17 mg/dL) 4 L Creatinine (0.5 - 1.0 mg/dL) 0.5 Estimated GFR (>60 ml/min) > 60 BUN/Creatinine Ratio (7 - 25 %) 8.0 Troponin I Cancelled Hematology CBC w Diff NO MAN DIFF REQ WBC (4.8 - 10.8 /CUMM) 7.7 RBC (4.20 - 5.40 /CUMM) 3.60 L Hgb (12.0 - 16.0 G/DL) 9.6 L Hct (37 - 47 %) 30.0 L MCV (81.0 - 99.0 FL) 83.3 MCH (27.0 - 31.0 PG) 26.6 L RDW (11.5 - 14.5 %) 14.8 H Plt Count (130 - 400 /CUMM) 220 MPV (7.4 - 10.4 FL) 9.9 Gran % (42.2 - 75.2 %) 62.3 Lymphocytes % (20.5 - 51.1 %) 22.1 Monocytes % (1.7 - 9.3 %) 10.0 H Eosinophils % (0 - 5 %) 5.1 H Basophils % (0.0 - 2.0 %) 0.5 Absolute Granulocytes (1.4 - 6.5 /CUMM) 4.8 Absolute Lymphocytes (1.2 - 3.4 /CUMM) 1.7 Absolute Monocytes (0.10 - 0.60 /CUMM) 0.8 H Absolute Eosinophils (0.0 - 0.7 /CUMM) 0.4 Absolute Basophils (0.0 - 0.2 /CUMM) 0 PUBS MCHC (33.0 - 37.0 G/DL) 31.9 L Last 24 Hours of Magnus Results: Blood cultures June 29 negative Rapid flu swab June 29 negative Urine strep pneumo antigen and Legionella antigen June 29 negative Sputum culture June 30 mixed jose Blood cultures July 01 pending Sputum culture July 01 pending, with gram stain revealing many white blood cells and moderate gram-positive cocci Diagnostic Data Recent Imaging Findings: Chest x-ray June 29 patchy retrocardiac density at the left lower lobe CT of the chest July 01 reveals dense retrocardiac airspace disease, with significantly smaller focal airspace disease at the right lung base Assessment/Plan Assessment/Plan Impression: This is a 20-year-old woman with a history of asthma, treated twice in the past year for pneumonia, admitted on June 29 with a two-week history of cough, congestion, shortness of breath, chest discomfort, fevers and chills, found to be febrile with a leukocytosis and with chest x-ray revealing a left lower lobe pneumonia, treated empirically with antibiotics for community-acquired pneumonia , with improvement in her symptoms and normalization of her white blood cell count but with a recurrent fever after approximately 28 hours of antibiotics. She appears to have responded to the Ceftriaxone and Azithromycin and, therefore , feel that these antibiotics can be continued. Her CBC does reveal increased eosinophils, suggesting the possibility of a drug fever, though she has no rash. Her CT scan confirms the suspected left lower lobe pneumonia, but does not reveal any evidence of obstruction or any significant effusion to suggest an empyema. There is no obvious explanation for her recurrent pneumonias, with no history to suggest an increased susceptibility to infections in general and she is HIV negative. She will need follow-up imaging as an outpatient to ensure that her left lower lobe consolidation resolves. Suggestion: 1. Follow-up recent sputum cultures 2. Discontinue Vancomycin and Ceftazidime 3. Restart Ceftriaxone 1 g IV every 24 hours and Azithromycin 500 mg IV every 24 hours Consult Acknowledgment - Thank you for your consult request.
[2016-07-01 22:39] VITALS: BP 116/78
[2016-07-02 06:31] VITALS: BP 104/66
--- NOTE | 2016-07-02 07:41 | PN- Housestaff ---
HAYLEY GALAVIZ,SHAHRAM 07/02/16 0741: Subjective Follow-up For: Left lower lobe pneumonia Subjective: Patient seen and examined. She is seen sitting upright in bed resting comfortably. She appears to be in no acute distress. She reports sleeping well last night and denies any subjective complaints, also stating that she is breathing well with no further chest pain. Additionally she denies any headache, fever, chills, palpitations, persistent shortness of breath, cough, nausea, vomiting, diarrhea. No overnight events reported. Review of Systems Constitutional: Reports: see HPI. Objective Last 24 Hrs of Vital Signs/I&O Vital Signs Date Time Temp Pulse Resp B/P Pulse O2 O2 Flow FiO2 Ox Delivery Rate 07/02 1001 97 Room Air 07/02 0800 Room Air 07/02 0631 98.5 91 18 104/66 97 Room Air 07/02 0000 97 Room Air 07/01 2239 99.2 105 18 116/78 97 Room Air 07/01 1907 99 Room Air Room Air 07/01 1600 Room Air Intake & Output 07/02 1600 07/02 0800 07/02 0000 Intake Total 0 600 Output Total Balance 0 600 Intake, IV 0 Intake, Oral 0 600 Number 0 Bowel Movements Physical Exam General Appearance: Alert, Oriented X3, Cooperative, No Acute Distress Other Physical Findings: General -well-developed, well-nourished young woman in no acute distress HEENT - NCAT, PERRL, EOMI, anicteric sclera Cardio - S1, S2 w/o murmurs/gallops/rubs Resp -clear to auscultation bilaterally GI - soft, nontender, nondistended, bowel sounds present Neuro - Awake and alert, CN II - XII grossly intact Extremities -normal pulses, no cyanosis/clubbing/edema Current Medications: Current Medications Sig/Mel Start time Last Medication Dose Route Stop Time Status Admin Acetaminophen 650 MG Q6P PRN 06/29 2029 DCD 06/30 PO 2254 Acetaminophen/ 1 TAB Q6P PRN 06/29 2029 DCD 07/01 Hydrocodone Bitart PO 194 Albuterol Sulfate 3 ML BID 06/30 2200 DCD 07/02 INH 0959 Albuterol Sulfate 3 ML Q4H PRN 06/29 2029 DCD INH Azithromycin 500 MG DAILY 07/02 1000 DCD 07/02 Sodium Chloride 250 ML IV 0859 Ceftazidime 1,000 MG IQ8 07/01 0800 DC 07/01 IV 1552 Ceftriaxone Sodium 1,000 MG DAILY 07/02 1000 DCD 07/02 IV 0859 Diphenhydramine HCl 25 MG Q6P PRN 06/29 2029 DCD IV Guaifenesin 600 MG Q12 06/29 2199 DCD 07/02 PO 0859 Guaifenesin/Codeine 10 ML Q4P PRN 06/29 2029 DCD 06/30 Phosphate PO 1826 Morphine Sulfate 2 MG Q4P PRN 06/29 2029 DCD 06/30 IV 1826 Ondansetron HCl 4 MG Q6P PRN 06/29 2029 DCD IV Patient Medication 1 ED .STK-MED ONE 07/02 1421 [facility] ED 07/02 1422 Senna/Docusate Sodium 1 TAB AT BEDTIME 06/29 2199 DCD 06/30 PO 2122 Vancomycin HCl 1,000 MG Q12H 07/01 1000 DC 07/01 Dextrose/Water 250 ML IV 1248 Last 24 Hrs of Lab/Magnus Results Last 24 Hrs of Labs/Mics: Laboratory Tests 07/02/16 0630: Anion Gap 9, Estimated GFR > 60, BUN/Creatinine Ratio 10.0, CBC w Diff NO MAN DIFF REQ, RBC 3.80 L, MCV 82.6, MCH 26.7 L, RDW 14.6 H, MPV 9.8, Gran % 47.7, Lymphocytes % 30.3, Monocytes % 11.6 H, Eosinophils % 9.9 H, Basophils % 0.5, Absolute Granulocytes 2.3, Absolute Lymphocytes 1.4, Absolute Monocytes 0.5, Absolute Eosinophils 0.5, Absolute Basophils 0, PUBS MCHC 32.3 L Assessment/Plan Assessment: Patient remains afebrile overnight while maintained on intravenous antibiotics. She reports feeling well today and is requesting to be discharged. She is to be discharged on oral Moxifloxicin to complete a 7 day total antibiotic course. She is to follow up with Dr. Georges in her office for further evaluation and possible repeat imaging. Severe sepsis secondary to left lower lobe pneumonia Patient reports multiple episodes of left lower lobe pneumonia in recent years. Patient was reportedly recently seen in [facility] for similar symptoms 1 week ago for which she was reportedly diagnosed with a "cold" and discharged home with a nasal spray. Chest x-ray demonstrates a left lower lobe pneumonia. Legionella/strep/influenza negative. HIV/infectious mono titer negative. CT chest with intravenous contrast obtained demonstrated findings consistent with left lower lobe pneumonia. -General medicine -TRC with albuterol/ipratropium when necessary -Supplement oxygen, goal >92%, taper as tolerated -Cetriaxone 1g IV Daily -Azithromycin 500mg IV Daily -Guaifenesin 600 mg by mouth every 12 hours -Zofran 4 mg IV every 6 hours as needed for nausea -Infectious disease consult -Pulmonology consult -Follow-up cultures and sensitivities History of thyroid nodule Patient of Dr. viramontes. Reportedly was found to have a thyroid nodule via ultrasound.- -TSH/T4 0.526/1.29 History of cardiomyopathy Patient of Dr. Fung and Anju Vazquez MD (OBGYN). Echocardiogram dated demonstrated an ejection fraction of 70% without any obvious wall motion abnormalities. History of headaches Seen by an unknown neurology group by a physician first assistant manager by the name of Henny for evaluation of her longstanding headaches. Pain plan-acetaminophen/Vicodin/morphine Bowel regimen-MiraLAX/Senokot Diet-regular diet DVT prophylaxis-Lovenox CODE STATUS-full code Problem List: 1. Pneumonia Pain Ratin Pain Location: None Pain Goal: Remain pain free Pain Plan: As noted in plan Tomorrow's Labs & Rationales: None SHARRI العراقي MD 07/02/162048: Attending MD Review Statement Attending Statement Attending MD Statement: examined this patient, discuss w/resident/PA/LOAN EXPEDITOR, agreed w/resident/PA/LOAN EXPEDITOR, reviewed EMR data (avail), discussed with nursing, discussed with case mgmt, amended to note Attending Assessment/Plan: The patient was seen and discussed with house staff. Agree with the plan of care as outlined. OK to discharge to home today.
[2016-07-02 08:07] LABS: ABSOLUTE BASOPHIL COUNT 0 /CUMM (0.0-0.2); ABSOLUTE EOSINOPHIL COUNT 0.5 /CUMM (0.0-0.7); ABSOLUTE GRANULOCYTE CT 2.3 /CUMM (1.4-6.5); ABSOLUTE LYMPH COUNT 1.4 /CUMM (1.2-3.4); ABSOLUTE MONOCYTE COUNT 0.5 /CUMM (0.10-0.60); BASOPHIL % 0.5 % (0.0-2.0); EOSINOPHIL % 9.9 % (0-5); GRANULOCYTE % 47.7 % (42.2-75.2); HEMATOCRIT 31.3 % (37-47); MEAN CORPUSCULAR HGB 26.7 PG (27.0-31.0); MEAN CORPUSCULAR HGB CONC 32.3 G/DL (33.0-37.0); MEAN CORPUSCULAR VOLUME 82.6 FL (81.0-99.0); MEAN PLATELET VOLUME 9.8 FL (7.4-10.4); PLATELET COUNT 251 /CUMM (130-400); RBC DISTRIBUTION WIDTH 14.6 % (11.5-14.5); WHITE BLOOD CELL COUNT 4.7 /CUMM (4.8-10.8)
--- NOTE | 2016-07-02 09:04 | PN- Pulmonary ---
Subjective HPI/Critical Care Issues: The patient is awake and alert. She is feeling markedly improved. She no longer has significant chest congestion, chest tightness or shortness of breath. She is afebrile. Overall she feels well and wants to go home. Objective Current Medications: Current Medications Sig/Mel Start time Last Medication Dose Route Stop Time Status Admin Acetaminophen 650 MG Q6P PRN 06/29 2029 AC 06/30 PO 2254 Acetaminophen/ 1 TAB Q6P PRN 06/29 2029 AC 07/01 Hydrocodone Bitart PO 1946 Albuterol Sulfate 3 ML BID 06/30 220 AC 07/01 INH 1905 Albuterol Sulfate 3 ML Q4H PRN 06/29 2030 AC INH Azithromycin 500 MG DAILY 07/02 1000 AC Sodium Chloride 250 ML IV Ceftazidime 1,000 MG IQ8 07/01 0800 DC 07/01 IV 1552 Ceftriaxone Sodium 1,000 MG DAILY 07/02 1000 AC IV Diphenhydramine HCl 25 MG Q6P PRN 06/29 2029 AC IV Guaifenesin 600 MG Q12 06/29 2199 AC 07/01 PO 2105 Guaifenesin/Codeine 10 ML Q4P PRN 06/29 2029 AC 06/30 Phosphate PO 1826 Morphine Sulfate 2 MG Q4P PRN 06/29 2029 AC 06/30 IV 1826 Ondansetron HCl 4 MG Q6P PRN 06/29 2029 AC IV Patient Medication 1 ED .STK-MED ONE 07/01 1403 [place] Teaching ED 07/01 1404 Senna/Docusate Sodium 1 TAB AT BEDTIME 06/29 2199 AC 06/30 PO 2122 Sodium Chloride 1,000 ML Q10H 07/01 0845 DC 07/01 IV 1020 Vancomycin HCl 1,000 MG Q12H 07/01 1000 DC 07/01 Dextrose/Water 250 ML IV 1248 Vital Signs & I&O Last 24 Hrs of Vitals and I&O: Vital Signs Date Time Temp Pulse Resp B/P Pulse O2 O2 Flow FiO2 Ox Delivery Rate 07/02 0631 98.5 91 18 104/66 97 Room Air 07/02 0000 97 Room Air 07/019 99.2 105 18 116/78 97 Room Air 07/01 1907 99 Room Air Room Air 07/01 1600 Room Air 07/01 1427 98.3 90 20 118/86 98 Room Air 07/01 1110 98.1 07/01 0914 97 Room Air Intake & Output 07/02 1600 07/02 0800 07/02 0000 Intake Total 0 600 Output Total Balance 0 600 Intake, IV 0 Intake, Oral 0 600 Number 0 Bowel Movements Physical Exam General Appearance: well developed/nourished, no apparent distress, alert, comfortable Head: atraumatic, normal appearance Neck: supple Respiratory: no respiratory distress, lungs clear Cardiovascular: regular rate/rhythm Gastrointestinal: normal bowel sounds, soft, non-tender Extremities: no edema Skin: intact, normal color, warm/dry Results Last 24 Hrs of Lab Results: Laboratory Tests 07/02/16 0630: Anion Gap 9, Estimated GFR > 60, BUN/Creatinine Ratio 10.0, CBC w Diff NO MAN DIFF REQ, RBC 3.80 L, MCV 82.6, MCH 26.7 L, RDW 14.6 H, MPV 9.8, Gran % 47.7, Lymphocytes % 30.3, Monocytes % 11.6 H, Eosinophils % 9.9 H, Basophils % 0.5, Absolute Granulocytes 2.3, Absolute Lymphocytes 1.4, Absolute Monocytes 0.5, Absolute Eosinophils 0.5, Absolute Basophils 0, PUBS MCHC 32.[address] Scan Findings: 1. Features consistent with left lower lobar pneumonia and right lower lobar atelectasis, pneumonia or combination thereof. 2. Trace non drainable bilateral pleural effusions. Impression/Plan Impression/Plan Impression/Plan: 1. Left lower lobe, community acquired pneumonia. 2. History of asthma. 3. Thyroid cyst. 4. History of cardiomyopathy. Recommendations: * Continue nebs/TRC/Proventil. * Change to oral antibiotics. * Incentive spirometry for atelectasis prevention. * The patient will require a follow-up CT scan of the chest in 4-6 weeks to ensure resolution of the pneumonia. I will order this at [facility]. * My office will call the patient for a follow up appointment.
[2016-07-02] MEDS ORDERED: AVELOX400 M1 PO (10:01)
--- NOTE | 2016-07-02 10:05 | Patient Discharge Instructions ---
Discharge Instructions General Discharge Information You were seen/treated for: Community Acquired Pneumonia Special Instructions: Follow up with your primary care provider after discharge. Take Avelox as directed starting 07/04/15, this medicaiton was transmitted electronically to your pharmacy. Call the office of Dr. Georges to schedule an appointment in four weeks time. Call 911 or return to the ED should your symptoms worsen. Acute Coronary Syndrome Inclusion Criteria At DC or during hospital stay patient has or had the following: ACS DIAGNOSIS No Discharge Core Measures Meds if any: Prescribed or Continued at Discharge Meds if any: NOT Prescribed or Continued at Discharge Congestive Heart Failure Inclusion Criteria At DC or during hospital stay patient has or had the following: CHF DIAGNOSIS No Discharge Core Measures Meds if any: Prescribed or Continued at Discharge Meds if any: NOT Prescribed or Continued at Discharge Cerebrovascular accident Inclusion Criteria At DC or during hospital stay patient has or had the following: CVA/TIA Diagnosis No Discharge Core Measures Meds if any: Prescribed or Continued at Discharge Meds if any: NOT Prescribed or Continued at Discharge Venous thromboembolism Inclusion Criteria VTE Diagnosis No VTE Type NONE VTE Confirmed by (Test) NONE Discharge Core Measures - Per Current guidelines, there needs to be overlap - treatment for the first 5 days of Warfarin therapy. - If discharged on Warfarin prior to 5 days of - overlap therapy, the patient will need to be - assessed for post discharge needs including - *Post discharge parental anticoagulation - *Warfarin and/or parental anticoagulation education - *Follow up date to check INR post discharge At least 5 days overlap therapy as Inpatient No Meds if any: Prescribed or Continued at Discharge Note: Overlap Therapy is Warfarin and Anticoagulant Meds if any: NOT Prescribed or Continued at Discharge
--- NOTE | 2016-07-02 17:58 | Discharge Summary ---
Visit Information Visit Dates Admission Date: 06/29/16 Discharge Date: 07/02/16 Hospital Course Course Attending Physician: SHARRI العراقي MD Primary Care Physician: KAILASH GALAVIZ,KAIA Najera Consulting Request: 1 Consulting Specialty: Pulmonary Disease Consulting Request: 2 Consulting Specialty: Infectious Disease Hospital Course: 20-year-old woman with significant past medical history of cardiomyopathy, asthma, and recurrent left lower lobe pneumonia seen for evaluation of worsening shortness of breath. Patient reports 2 months ago she was hospitalized at [facility] for left lower lobe pneumonia which was subsequently treated. One week prior to admission patient was seen at the [facility] emergency department for recurrent symptoms of fever, cough, congestion, sore throat and shortness of breath for which she was reportably told she had an "cold" and was discharged on a nasal spray. Cough was initially characterizes productive of green sputum. She admits to chills, malaise, headache, and shortness of breath with exertion. Past medical history- cardiomyopathy, asthma, thyroid cyst ED course: -Vitals: Temp 98.6-100.9, HR 100-153, RR 18-20, BP 102-1-2/54-78, O2 94-100% on room air -Significant Labs: WBC 14.0, Hgb/HCT 11.3/35.4, PLT 260, CPK 1174, troponin < 0.01, urine toxicology positive for benzodiazepines, HCG negative, HIV negative -Studies: Blood cultures 2, Legionella/Streptococcus antigen, rapid flu, sputum culture -Interventions: Azithromycin 500 mg IV, normal saline 1 L Severe sepsis secondary to left lower lobe pneumonia Patient was admitted to the general medicine floor and started on intravenous antibiotics. Chest x-ray demonstrated a left lower lobe pneumonia. CT chest with intravenous contrast them should findings consistent with a left lower lobe pneumonia. She received 3 days' worth of intravenous antibiotics before being discharged on oral moxifloxacin to complete a 10 day total course of antibiotics. During the stay lab work demonstrated eosinophilia of unclear origins. Legionella/strep/influenza negative. HIV/mono titer negative. Infectious disease and pulmonology consult were obtained for further assessment of her recurrent left lower lobe pneumonia. Patient is to follow-up with lubrication equipment servicer Dr. Georges in her office 4 weeks after discharge for further evaluation and further potential interval imaging assessment. Cultures remain no growth to date upon discharge. Allergies: Coded Allergies: No Known Allergies (06/29/16) Significant Procedures: EXAM TYPE: RAD - XRY-CHEST XRAY, PA AND LATERAL IMPRESSION: Left lower lobe pneumonia. No parapneumonic effusion. EXAM TYPE: CAT - CT CHEST W IV CONTRAST IMPRESSION: 1. Features consistent with left lower lobar pneumonia and right lower lobar atelectasis, pneumonia or combination thereof. 2. Trace non drainable bilateral pleural effusions. Disposition Summary Disposition Principal Diagnosis: Recurrent left lower lobe pneumonia Additional Diagnosis: Severe sepsis Discharge Disposition: home or self care Discharge Instructions General Discharge Information Code Status: Full Code Patient's Diet: Regular diet Patient's Activity: Return to full activity as tolerated Follow-Up Instructions/Appts: Follow up with your primary care provider after discharge. Take Avelox as directed starting 07/04/15, this medicaiton was transmitted electronically to your pharmacy. Call the office of Dr. Georges to schedule an appointment in four weeks time. Call 911 or return to the ED should your symptoms worsen. Medications at Discharge Discharge Medications: Continue taking these medications: Albuterol Sulfate (Proair Hfa) 90 MCG HFA.AER.AD 2 Puff Inhale through mouth EVERY 4-6 HOURS NEEDED as needed for RESPIRATORY Qty = 9 Comments: NEBULIZER GIVEN WHILE IN HOSPITAL Ipratropium [place] (Ipratropium [place]) 42 MCG (0.06 %) SPRAY 1-2 [place] Both sides of nose As Directed as needed for NASAL CONGESTION Qty = 15 Comments: NOT GIVEN WHILE IN HOSPITAL Ibuprofen (Ibuprofen) 800 MG TABLET 1 Tablet ORAL TWICE DAILY Comments: NOT GIVEN WHILE IN HOSPITAL Start taking the following new medications: Moxifloxacin HCl (Avelox) 400 MG TABLET 1 Tablet ORAL DAILY Qty = 4 No Refills Instructions: START THIS MED 07/03/16 Comments: IV ANTIOBIOTICS GIVEN WHILE IN HOSPITAL Copies To: GEOFFREY GALAVIZ,Topher MCCURDY; SOURAV GALAVIZ,CELESTE Charles; KAILASH GALAVIZ,KAIA Najera Attending MD Review Statement Documenting Attending: SHARRI العراقي MD Other Findings: Agree with the plan upon discharge.
== END 2016-07-02 12:40 | DRG 720 ==
LOC: ENRESERVDT → ENRESERVTM → ERH 17:11 → ERHI 20:32 → 2NA 20:32
PROVIDERS: Internal Medicine Hematology & Oncology; Internal Medicine Interventional Cardiology; Physician Assistant Medical; ADMIT Student in an Organized Health Care Education/Training Program
DX: A41.9 Sepsis, unspecified organism (principal); J18.9 Pneumonia, unspecified organism; J45.909 Unspecified asthma, uncomplicated; F17.210 Nicotine dependence, cigarettes, uncomplicated
CPT/HCPCS: 2NAP; 36415; 80307; 81003; 81025; 82436; 87040; 87070; 87389; 87449; 87450; 87804; 87804-59; 93005; 93010; 96361; 96374; 96375; 99291; J0131; J0456; J0696; J0713; J1200; J2405; J3370; J7040; J7060

== ENCOUNTER 2016-07-28 14:06 | Emergency (ER) | payer OTHER ==
[~2016-07-28] VITALS: Ht 175.3 cm; Wt 69.4 kg
[~2016-07-28 14:06] MED LIST changes: +AVELOX400 M1 PO; +IBUPROFEN800 M1 PO; +IPRATROPIUM BRO15 M1 NASB; +PROAIR HFA8.5 GM INH
[2016-07-28 15:02] LABS: ABSOLUTE BASOPHIL COUNT 0 /CUMM (0.0-0.2); ABSOLUTE EOSINOPHIL COUNT 0.4 /CUMM (0.0-0.7); ABSOLUTE GRANULOCYTE CT 1.7 /CUMM (1.4-6.5); ABSOLUTE LYMPH COUNT 1.3 /CUMM (1.2-3.4); ABSOLUTE MONOCYTE COUNT 0.5 /CUMM (0.10-0.60); BASOPHIL % 0.4 % (0.0-2.0); EOSINOPHIL % 10.2 % (0-5); GRANULOCYTE % 42.8 % (42.2-75.2); HEMATOCRIT 30.8 % (37-47); MEAN CORPUSCULAR HGB 26.5 PG (27.0-31.0); MEAN CORPUSCULAR HGB CONC 33.1 G/DL (33.0-37.0); MEAN PLATELET VOLUME 9.4 FL (7.4-10.4); PLATELET COUNT 193 /CUMM (130-400); RBC DISTRIBUTION WIDTH 14.4 % (11.5-14.5); RED BLOOD CELL CT 3.85 /CUMM (4.20-5.40)
--- NOTE | 2016-07-28 15:27 | ED INFLUENZA/URI COMPLAINT ---
History of Present Illness General Chief Complaint: Fever Stated Complaint: FEVER,CHILLS Source: patient Exam Limitations: no limitations Vital Signs & Intake/Output Vital Signs & Intake/Output Vital Signs Date Time Temp Pulse Resp B/P Pulse O2 O2 Flow FiO2 Ox Delivery Rate 07/28 1409 98.5 78 16 132/74 99 Room Air Allergies Coded Allergies: No Known Allergies (06/29/16) Reconcile Medications Albuterol Sulfate (Proair Hfa) 90 MCG HFA.AER.AD 2 PUF INH Q4-6 PRN PRN RESPIRATORY (Reported) Ibuprofen 800 MG TABLET 1 TAB PO BID PAIN/INFLAMMATION (Reported) Ipratropium [place] 42 MCG (0.06 %) SPRAY 1-2 SPRAY NASB AD PRN NASAL CONGESTION (Reported) Moxifloxacin HCl (Avelox) 400 MG TABLET 1 TAB PO DAILY Pneumonia START THIS MED 07/03/16 Triage Note: 20 Y/O FEMALE C/O 1 WEEK HISTORY HEADACHES, FEVERS AND DIFFUSE ABDOMINAL PAIN RADIATING TO RLQ. +NAUSEA, DENIES VOMITING. DENIES CHANGES IN APPETITE. TOOK 400MG MOTRIN 2 HOURS AGO WITH SOME RELIEF. STATES MENSES IS 10 DAYS LATE. URINE SAMPLE REQUESTED; AFEBRILE. Triage Nurses Notes Reviewed? yes : No Patient currently breastfeeds: No Past History Travel History Traveled to [place] past 21 day No Medical History Neurological: NONE EENT: NONE Cardiovascular: INDUCED CARDIOMYOPATHY ( induced cardiomyopat) Respiratory: asthma Gastrointestinal: NONE Hepatic: NONE Renal: NONE Musculoskeletal: NONE Psychiatric: NONE Endocrine: thyroid cyst Blood Disorders: NONE Cancer(s): NONE LITIGATION MANAGER/Reproductive: NONE History of MRSA: No History of VRE: No History of CDIFF: No Influenza Vaccine: 01/12/16 Surgical History Surgical History: tonsillectomy, adenoids removal Psychosocial History What is your primary language Turkmen Tobacco Use: Never used Progress Plan of Care: Orders Procedure Date/time Status COMPREHENSIVE METABOLIC PANEL 07/28 1444 Complete CBC WITHOUT DIFFERENTIAL 07/28 1444 Complete URINE 07/28 1411 Complete URINALYSIS 07/28 1411 Complete Laboratory Tests 07/28/16 1451: Anion Gap 9, Estimated GFR > 60, BUN/Creatinine Ratio 10.0, Glucose 115 H, Calcium 9.3, Total Bilirubin 0.7, AST 28, ALT 48, Alkaline Phosphatase 70, Total Protein 6.8, Albumin 4.0, Globulin 2.8, Albumin/Globulin Ratio 1.4, CBC w Diff NO MAN DIFF REQ, RBC 3.85 L, MCV 80.0 L, MCH 26.5 L, RDW 14.4, MPV 9.4, Gran % 42.8, Lymphocytes % 33.9, Monocytes % 12.7 H, Eosinophils % 10.2 H, Basophils % 0.4, Absolute Granulocytes 1.7, Absolute Lymphocytes 1.3, Absolute Monocytes 0.5, Absolute Eosinophils 0.4, Absolute Basophils 0, PUBS MCHC 33.1 07/28/16 1441: Urine Color YEL, Urine Clarity CLEAR, Urine pH 6.0, Ur Specific [place] 1.010, Urine Protein NEG, Urine Ketones NEG, Urine Nitrite NEG, Urine Bilirubin NEG, Urine Urobilinogen 0.2, Ur Leukocyte Esterase SMALL H, Ur Microscopic SEDIMENT EXAMINED, Urine WBC 1-3 H, Ur Epithelial Cells MOD H, Urine Bacteria FEW H, Micro UA Comment MORE INFO: H, Urine Hemoglobin NEG, Urine Glucose NEG, Urine Test NEGATIVE Diagnostic Imaging: Viewed by Me: CT Scan. Discussed w/RAD: CT Scan. Departure Departure Condition: Stable Referrals: KAILASH GALAVIZ,KAIA Najera (PCP/Family) Departure Forms: Customer Survey General Discharge Information
--- NOTE | 2016-07-28 15:36 | ED GI/GU/ABDOMINAL COMPLAINT ---
See Addendum History of Present Illness General Chief Complaint: Fever Stated Complaint: FEVER,CHILLS Source: patient Exam Limitations: no limitations Vital Signs & Intake/Output Vital Signs & Intake/Output Vital Signs Date Time Temp Pulse Resp B/P Pulse O2 O2 Flow FiO2 Ox Delivery Rate 07/28 1857 80 19 112/63 98 Room Air 07/28 1620 97 07/28 1616 98.7 76 18 109/63 100 Room Air 07/28 1409 98.5 78 16 132/74 99 Room Air Allergies Coded Allergies: No Known Allergies (06/29/16) Reconcile Medications Albuterol Sulfate (Proair Hfa) 90 MCG HFA.AER.AD 2 PUF INH Q4-6 PRN PRN RESPIRATORY (Reported) Ferrous Sulfate (IRON) 325 MG (65 MG IRON) TABLET 1 TAB PO DAILY SUPPLEMENT ( Reported) Triage Note: 20 Y/O FEMALE C/O 1 WEEK HISTORY HEADACHES, FEVERS AND DIFFUSE ABDOMINAL PAIN RADIATING TO RLQ. +NAUSEA, DENIES VOMITING. DENIES CHANGES IN APPETITE. TOOK 400MG MOTRIN 2 HOURS AGO WITH SOME RELIEF. STATES MENSES IS 10 DAYS LATE. URINE SAMPLE REQUESTED; AFEBRILE. Triage Nurses Notes Reviewed? yes ? N Is pt currently ? No Onset: Abrupt Duration: day(s): (2) Timing: multiple episodes today Location: right lower quadrant Radiation: no radiation Activities at Onset: none Sexually Active: No Last Time You Were Sexual: 1 YEAR AGO Associated Symptoms: FEVER HPI: This is a 18-year-old male presents to the ER chief complaint of fever and abdominal pain for the past 2 days. MAXIMUM TEMPERATURE at home was 101.3. She states she's had persistent right lower quadrant abdominal pain for the past 2 days. No nausea or vomiting. Pain is worse with palpation. She has been taking ibuprofen at home and lasted 3 hours prior to arrival for a temperature of 101.3. Today she called her doctor and they advised her to come here for evaluation. She has a history of pneumonia and was admitted to the hospital last month. She states that she just got back from vacation she went to [place] and [address] [place] [address]. Denies any significant cough. No diarrhea. No urinary symptoms. She states she is due for her period and is late by 10 days which she attributes to stress. She has not been sexually active for the past one year. Denies any vaginal discharge. (LEVI BLANC MD) Past History Travel History Traveled to [place] past 21 day No Medical History Any Pertinent Medical History? see below for history Neurological: NONE EENT: NONE Cardiovascular: INDUCED CARDIOMYOPATHY ( induced cardiomyopat) Respiratory: asthma Gastrointestinal: NONE Hepatic: NONE Renal: NONE Musculoskeletal: NONE Psychiatric: NONE Endocrine: thyroid cyst Blood Disorders: NONE Cancer(s): NONE TELEMETRY MONITOR/Reproductive: NONE History of MRSA: No History of VRE: No History of CDIFF: No Influenza Vaccine: 01/12/16 Surgical History Surgical History: tonsillectomy, adenoids removal Psychosocial History What is your primary language Latvian Tobacco Use: Never used Family History Hx Contributory? No (LEVI BLANC MD) Review of Systems Review of Systems Constitutional: Reports: chills, fever. EENTM: Reports: no symptoms. Respiratory: Reports: cough (MINIMAL). Denies: short of breath, sputum production. Cardiovascular: Denies: chest pain, palpitations. GI: Reports: abdominal pain. Denies: nausea, vomiting. Genitourinary: Denies: discharge, dysuria, hematuria. Musculoskeletal: Reports: no symptoms. Skin: Reports: no symptoms. Neurological/Psychological: Reports: no symptoms. Hematologic/Endocrine: Denies: bruising, bleeding, polyuria, polydipsia. Immunologic/Allergic: Reports: no symptoms. All Other Systems: Reviewed and Negative (LEVI BLANC MD) Physical Exam Physical Exam General Appearance: alert, awake, mild distress, thin Head: atraumatic Eyes: Bilateral: normal appearance, PERRL, EOMI. Ears, Nose, Throat, Mouth: hearing grossly normal, moist mucous membrane Neck: normal inspection, supple, full range of motion Respiratory: normal breath sounds, chest non-tender, no respiratory distress Cardiovascular: regular rate/rhythm Peripheral Pulses: 2+ radial (R), 2+ radial (L) Gastrointestinal: normal bowel sounds, soft, tenderness (RLQ), POSITIVE REBOUND, POSITIVE PSOAS Extremities: normal range of motion Core Measures ACS in differential dx? No Severe Sepsis Present: No Septic Shock Present: No (LEVI BLANC MD) Progress Differential Diagnosis: appendicitis, ectopic , intrauterine , ovarian cyst, ovarian torsion, UTI/pyelo Plan of Care: Orders Procedure Date/time Status COMPREHENSIVE METABOLIC PANEL 07/28 1444 Complete CBC WITHOUT DIFFERENTIAL 07/28 1444 Complete URINE 07/28 1411 Complete URINALYSIS 07/28 1411 Complete Laboratory Tests 07/28/16 1451: Anion Gap 9, Estimated GFR > 60, BUN/Creatinine Ratio 10.0, Glucose 115 H, Calcium 9.3, Total Bilirubin 0.7, AST 28, ALT 48, Alkaline Phosphatase 70, Total Protein 6.8, Albumin 4.0, Globulin 2.8, Albumin/Globulin Ratio 1.4, CBC w Diff NO MAN DIFF REQ, RBC 3.85 L, MCV 80.0 L, MCH 26.5 L, RDW 14.4, MPV 9.4, Gran % 42.8, Lymphocytes % 33.9, Monocytes % 12.7 H, Eosinophils % 10.2 H, Basophils % 0.4, Absolute Granulocytes 1.7, Absolute Lymphocytes 1.3, Absolute Monocytes 0.5, Absolute Eosinophils 0.4, Absolute Basophils 0, PUBS MCHC 33.1 07/28/16 1441: Urine Color YEL, Urine Clarity CLEAR, Urine pH 6.0, Ur Specific [place] 1.010, Urine Protein NEG, Urine Ketones NEG, Urine Nitrite NEG, Urine Bilirubin NEG, Urine Urobilinogen 0.2, Ur Leukocyte Esterase SMALL H, Ur Microscopic SEDIMENT EXAMINED, Urine WBC 1-3 H, Ur Epithelial Cells MOD H, Urine Bacteria FEW H, Micro UA Comment MORE INFO: H, Urine Hemoglobin NEG, Urine Glucose NEG, Urine Test NEGATIVE 4:[address] RESULTS REVIEWED WITH PATIENT. U/S ORDERED. STILL COMFORTABLE, DOES NOT WANT ANYTHING FOR PAIN. (JAYASHREE GALAVIZ,LEVI) Diagnostic Imaging: Viewed by Me: CT Scan, Ultrasound. Discussed w/RAD: CT Scan, Ultrasound. Radiology Impression: PATIENT: JOANIE KEYES PRESENT AGE: 20 PATIENT ACCOUNT NO: [id number] : 93 LOCATION: [facility] ORDERING PHYSICIAN: LEVI BLANC MD SERVICE DATE: 07/28/16 EXAM TYPE: CAT - CT ABD & PELVIS W IV CONTRAST EXAMINATION: CT ABDOMEN AND PELVIS WITH CONTRAST CLINICAL INFORMATION: Evaluate for appendicitis. Right lower quadrant pain. Fever. COMPARISON: None TECHNIQUE: Multidetector volumetric imaging was performed of the abdomen and pelvis before and after the IV administration of 94 mL of Optiray 320 intravenous contrast. Sagittal and coronal reformatted images were obtained on the technologist's workstation. DLP: 304.71 mGy-cm FINDINGS: LUNG BASES: Bronchial wall thickening with mucous plugging or endobronchial secretions noted in the left lower lobe. Few small centrilobular nodules. Findings may be seen with respiratory bronchiolitis or hypersensitivity changes. Infectious etiology cannot be entirely excluded on these limited images. Clinical correlation is recommended. LIVER, GALLBLADDER, AND BILIARY TREE: The liver is normal in size, shape, and attenuation. No focal hepatic lesion or biliary ductal dilatation is present. The gallbladder is unremarkable with no evidence of radiopaque gallstones, gallbladder wall thickening, or obvious pericholecystic inflammatory changes. PANCREAS: Unremarkable. SPLEEN: Unremarkable. ADRENAL GLANDS: Unremarkable. KIDNEYS AND URETERS: The kidneys are normal in size, shape, and attenuation. No hydronephrosis, hydroureter, or calculi seen. No perinephric stranding. BLADDER: Unremarkable. GASTROINTESTINAL TRACT: No acute bowel pathology. No evidence of appendicitis. Normal-appearing appendix identified. Moderate to large amount of fecal material noted throughout the large bowel and rectum. Orally ingested food material filling the stomach. ABDOMINAL WALL: No significant hernia is appreciated. LYMPH NODES: Mildly prominent mesenteric nodes with no evidence of lymphadenopathy. VASCULAR: Normal enhancement. PELVIC VISCERA: Right ovary noted posterior superior to the uterus demonstrates a dominant corpus luteal cyst. Mild prominence of bilateral ovaries compatible with physiologic change in this age group. Prominence of the endometrial stripe may represent physiologic change. However, based on the CT images stripe thickening is greater than normally seen measuring approximately 1.9 cm. Clinical correlation and pelvic ultrasound recommended. Small amount of free fluid in the cul-de-sac compatible with physiologic changes in this age group. OSSEOUS STRUCTURES: No acute osseous abnormality. IMPRESSION: 1. Bronchial wall thickening with plugging or endobronchial secretions noted in the left lower lobe bronchi. These represent nonspecific finding. These findings may be secondary to inflammatory or infectious etiology. Clinical correlation is recommended. 2. No evidence of acute appendicitis. 3. Physiologic changes noted in the ovaries. Corpus luteal cyst right ovary. Thickness of the endometrial stripe greater than generally seen. However, evaluation is relatively limited on the CT scan. It can be more accurately assessed with pelvic ultrasound. DICTATED BY: MIRA LUKE MD DATE/TIME DICTATED:04/17/17 / 1620 BOILERMAKER [employer]SEMBLY AND ERECTION: ANTONIO DATE/TIME TRANSCRIBED:07/28/16 / 1620 CONFIDENTIAL, DO NOT COPY WITHOUT APPROPRIATE AUTHORIZATION. <Electronically signed in Other Vendor System> SIGNED BY: MIRA LUKE MD 07/28/16 1642 Initial ED EKG: none Hand-Off Endorsed To: STEPHANIE MCKOY MD Endorsed Time: 0700 Pending: ultrasound (LEVI BLANC MD) Departure Departure Condition: Stable Clinical Impression Primary Impression: Abdominal pain Referrals: KAILASH GALAVIZ,KAIA Najera (PCP/Family) Departure Forms: Customer Survey General Discharge Information (LEVI BLANC MD) Departure Disposition: HOME OR SELF CARE (STEPHANIE MCKOY MD)
[2016-07-28] MEDS ORDERED: IRON325 M3 PO (15:37)
--- NOTE | 2016-07-28 16:42 | CT SCAN REPORT ---
EXAMINATION: CT ABDOMEN AND PELVIS WITH CONTRAST CLINICAL INFORMATION: Evaluate for appendicitis. Right lower quadrant pain. Fever. COMPARISON: None TECHNIQUE: Multidetector volumetric imaging was performed of the abdomen and pelvis before and after the IV administration of 94 mL of Optiray 320 intravenous contrast. Sagittal and coronal reformatted images were obtained on the technologist's workstation. DLP: 304.71 mGy-cm FINDINGS: LUNG BASES: Bronchial wall thickening with mucous plugging or endobronchial secretions noted in the left lower lobe. Few small centrilobular nodules. Findings may be seen with respiratory bronchiolitis or hypersensitivity changes. Infectious etiology cannot be entirely excluded on these limited images. Clinical correlation is recommended. LIVER, GALLBLADDER, AND BILIARY TREE: The liver is normal in size, shape, and attenuation. No focal hepatic lesion or biliary ductal dilatation is present. The gallbladder is unremarkable with no evidence of radiopaque gallstones, gallbladder wall thickening, or obvious pericholecystic inflammatory changes. PANCREAS: Unremarkable. SPLEEN: Unremarkable. ADRENAL GLANDS: Unremarkable. KIDNEYS AND URETERS: The kidneys are normal in size, shape, and attenuation. No hydronephrosis, hydroureter, or calculi seen. No perinephric stranding. BLADDER: Unremarkable. GASTROINTESTINAL TRACT: No acute bowel pathology. No evidence of appendicitis. Normal-appearing appendix identified. Moderate to large amount of fecal material noted throughout the large bowel and rectum. Orally ingested food material filling the stomach. ABDOMINAL WALL: No significant hernia is appreciated. LYMPH NODES: Mildly prominent mesenteric nodes with no evidence of lymphadenopathy. VASCULAR: Normal enhancement. PELVIC VISCERA: Right ovary noted posterior superior to the uterus demonstrates a dominant corpus luteal cyst. Mild prominence of bilateral ovaries compatible with physiologic change in this age group. Prominence of the endometrial stripe may represent physiologic change. However, based on the CT images stripe thickening is greater than normally seen measuring approximately 1.9 cm. Clinical correlation and pelvic ultrasound recommended. Small amount of free fluid in the cul-de-sac compatible with physiologic changes in this age group. OSSEOUS STRUCTURES: No acute osseous abnormality. IMPRESSION: 1. Bronchial wall thickening with plugging or endobronchial secretions noted in the left lower lobe bronchi. These represent nonspecific finding. These findings may be secondary to inflammatory or infectious etiology. Clinical correlation is recommended. 2. No evidence of acute appendicitis. 3. Physiologic changes noted in the ovaries. Corpus luteal cyst right ovary. Thickness of the endometrial stripe greater than generally seen. However, evaluation is relatively limited on the CT scan. It can be more accurately assessed with pelvic ultrasound.
[2016-07-28 18:57] VITALS: BP 112/63
--- NOTE | 2016-07-28 19:15 | ULTRASOUND REPORT ---
EXAMINATION: US PELVIS TRANSVAGINAL CLINICAL INFORMATION: Right lower quadrant pain and fever COMPARISON: CT abdomen pelvis from earlier the same day TECHNIQUE: Sonography of the pelvis is performed transabdominally and transvaginally. Pulsed and color Doppler interrogation of ovarian blood flow. FINDINGS: The uterus is normal in size and echogenicity. It measures 9.7 cm from fundus to cervix and 5.0 x 6.2 cm in AP and transverse diameter. It is anteverted. Cervical length is 2.8 cm. Endometrial echo complex thickness is normal at 1.0 cm. No fluid collection is seen in the uterine cavity. No mass is identified. Right ovary measures 4.3 x 2.7 x 2.2 cm, volume 13.5 mL. The ovary is normal in appearance. Arterial and venous flow is present throughout the right ovary with normal waveforms. No ovarian or adnexal mass is defined on the right. Left ovary measures 2.2 x 2.4 x 3.1 cm, volume 8.3 mL. The ovary is normal in appearance. Arterial and venous flow is present throughout the left ovary with normal waveforms. No ovarian or adnexal mass is defined on the left. There is a small amount of free fluid in the pelvis. No loculated collection is identified. IMPRESSION: Normal appearance to the uterus and ovaries with no evidence for ovarian or adnexal mass or torsion. No abnormal fluid collection.
== END 2016-07-28 19:26 ==
LOC: ERH 14:06
PROVIDERS: Emergency Medicine
DX: R10.31 Right lower quadrant pain (principal)
CPT/HCPCS: 74177; 81001; 81025